=== PATIENT | female | born 1965 | race Caucasian/White ===

== ENCOUNTER 2018-03-19 16:47 | Emergency (ER) | payer OTHER, SELFPAY ==
[2018-03-19 16:53] VITALS: BP 186/108; PULSE 96; RESP 20; TEMP 37; O2SAT 97
--- NOTE | 2018-03-19 20:35 | ED.SKABFB ---
HPI - Skin/Abscess/Foreign Bdy <NESHA Martin - Last Filed: 03/19/18 22:23> General Chief complaint: Skin/Abscess/Foreign Body Stated complaint: HAS BUMP ON CHEST - NO KNOWN INJURY Time Seen by Provider: 03/19/18 19:41 Source: patient Mode of arrival: ambulatory Limitations: no limitations History of Present Illness HPI narrative: 53-year-old healthy female that is a nonsmoker for complaint of abscess to her right breast for over the last week. She states that used to be larger in size however couple days ago it opened up and drained. She denies any trauma to the area she denies any fevers or chills. She reports she has not had a history of having abscesses in the past. She states that is not that tender at this time. No other concerns or complaints at this time. Related Data Previous Rx's Medication Instructions Recorded clindamycin HCl 300 mg PO QID #28 cap 03/19/18 Allergies Allergy/AdvReac Type Severity Reaction Status Date / Time No Known Drug Allergies Allergy Verified 03/19/18 16:52 Review of Systems <NESHA Martin - Last Filed: 03/19/18 22:23> Constitutional Denies chills, Denies fever(s), Denies lethargy and Denies weakness Eyes Denies change in vision, Denies eye discharge, Denies irritation and Denies loss of vision ENT Ears, Nose, Mouth, and Throat: Denies change in voice, Denies neck pain and Denies sore throat Cardiovascular Denies chest pain, Denies irregular heart rhythm, Denies lightheadedness, Denies palpitations, Denies dyspnea, Denies dyspnea on exertion and Denies orthopnea Respiratory Denies cough, Denies dyspnea, Denies dyspnea on exertion and Denies wheezing Gastrointestinal Gastrointestinal: Denies abdominal pain, Denies change in bowel habits, Denies diarrhea, Denies nausea and Denies vomiting Genitourinary Denies hematuria, Denies flank pain, Denies urinary incontinence and Denies urinary urgency Musculoskeletal Denies neck pain Integumentary/Breasts Comments: Abscess to right breast Neurologic Denies confusion, Denies loss of vision and Denies weakness Psychiatric Denies anxiety, Denies confusion, Denies depression, Denies homicidal ideation and Denies suicidal ideation Endocrine Denies palpitations Hematologic/Lymphatic Denies easy bruising Allergic/Immunologic Denies wheezing Exam <NESHA Martin - Last Filed: 03/19/18 22:23> Initial Vital Signs Initial Vital Signs: Vital Signs Temperature 98.6 F 03/19/18 16:53 Pulse Rate 96 H 03/19/18 16:53 Respiratory Rate 20 03/19/18 16:53 Blood Pressure 186/108 H 03/19/18 16:53 Pulse Oximetry 97 03/19/18 16:53 Const General: cooperative and well developed Nutritional Appearance: well nourished Orientation: alert, awake, oriented x3 and not confused [facility] Mouth: oral mucosae normal and moist mucous membranes Eyes Conjunctivae: conjunctivae normal Sclera: sclerae normal Pupils: PERRL EOM: EOM intact bilaterally Resp Effort & Inspection: normal respiratory effort, able to speak in complete sentences, no respiratory distress and no use of accessory muscles Auscultation: clear to auscultation bilaterally, no rales, no rhonchi and no wheezes Cardio Rate: regular rate Rhythm: regular rhythm Heart Sounds: no click, no gallops, no murmurs and no rubs Pulses: normal peripheral pulses Skin Other: 2 cm raised area to superior right breast area. No surrounding erythema. Positive fluctuance and induration. No drainage from area Neuro General: alert, oriented x3, gait normal and no focal motor deficits Speech: speech normal <Femi Smith DO - Last Filed: 03/20/18 01:33> Initial Vital Signs Initial Vital Signs: Vital Signs Temperature 98.6 F 03/19/18 16:53 Pulse Rate 96 H 03/19/18 16:53 Respiratory Rate 20 03/19/18 16:53 Blood Pressure 186/108 H 03/19/18 16:53 Pulse Oximetry 97 03/19/18 16:53 Procedures <NESHA Martin - Last Filed: 03/19/18 22:23> Abscess I/D Site: other (Right breast) Side (if applicable): right Local Anesthetic: lidocaine 1% Amount of anesthesia used (mL): 2 Technique: incised with #11 blade Amount of fluid expressed (mL): 10 Irrigation: No Packing used?: none Course <NESHA Martin - Last Filed: 03/19/18 22:23> Orders Ordered: ED Orders 03/19/18 21:05 Wound Culture and Gram Stain Stat Vital Signs - 8 hr 03/19/18 21:18 Temperature 97.7 F Pulse Rate 78 Respiratory Rate 18 Blood Pressure [Left Arm] 157/94 H Pulse Oximetry 99 <Femi Smith DO - Last Filed: 03/20/18 01:33> Orders Ordered: ED Orders 03/19/18 21:05 Wound Culture and Gram Stain Stat Vital Signs - 8 hr 03/19/18 21:18 Temperature 97.7 F Pulse Rate 78 Respiratory Rate 18 Blood Pressure [Left Arm] 157/94 H Pulse Oximetry 99 MDM - Skin/Abscess/Foreign Bdy <NESHA Martin - Last Filed: 03/19/18 22:23> MDM Narrative Medical decision making narrative: Incision to abscess to right breast was completed small amount of purulent drainage was removed. Believe most of purulent drainage was already drained when abscess plenty strain a few days ago. Packing not indicated. She is placed on clindamycin. Follow up with primary care provider in next few days for re-evaluation. [id number] Tylenol Motrin as needed for any discomfort. For any worsening symptoms return emergency room. Wound culture is obtained and is pending Discharge Plan Departure Patient Disposition: Home Clinical Impression: Abscess of breast, right Discharge Date/Time: 03/19/18 21:30 Interventions: ED Discharge Assessment Last Done: 03/19/18 21:30 Instructions: Incision and Drainage of a Skin Abscess Activity Restrictions/Additional Instructions: Signs and symptoms presents as the abscess to her right breast. Abscess was incised and drained today emergency room. Wound culture is obtained and is pending. Here placed on antibiotic called clindamycin use as directed. Use [id number] Tylenol or Motrin as needed for any discomfort. For any worsening symptoms return to the emergency room. Prescriptions: New clindamycin HCl 300 mg capsule 300 mg PO QID Qty: 28 RF: 0 Referrals: [facility] [Provider Group] <Femi Smith DO - Last Filed: 03/20/18 01:33> Cosign ED Attending Cossumiature Attestation: I was immediately available in the department for consultation. Documentation has been reviewed. I agree with assessment and plan.
[2018-03-19 21:18] VITALS: BP 157/94; PULSE 78; RESP 18; TEMP 36.5; O2SAT 99
== END 2018-03-19 21:30 | disposition home or self-care (01) ==
PROVIDERS: Emergency Provider Nurse Practitioner Family
DX: N61.1 Abscess of the breast and nipple (principal)
CPT/HCPCS: 10060; 87070; 87075; 87205; 99283

== ENCOUNTER → 2018-12-30 16:12 | Outpatient (CLI) | payer OTHER, SELFPAY ==
[2018-12-30 17:42] LABS: Add Manual Diff / Slide Review NO; Basophils Absolute Auto 100 /uL (0-100); Basophils Percent Auto 0.7 % (0-2); Eosinophils Absolute Auto 300 /uL (0-450); Eosinophils Percent Auto 3.6 % (2-4); Hematocrit 41.8 % (36-46); Hemoglobin 14.2 g/dL (12.0-16.0); Lymphocytes Absolute Auto 1300 /uL (1100-4500); Lymphocytes Percent Auto 14.6 % (25-40); Mean Corpuscular HGB Conc 33.9 % (30-36); Mean Corpuscular Hemoglobin 29.4 PG (26-34); Mean Corpuscular Volume 86.6 fL (80-100); Monocytes Absolute Auto 500 /uL (0-900); Monocytes Percent Auto 5.5 % (3-14); Neutrophils Absolute Auto 6800 /uL (1500-7000); Neutrophils Percent Auto 75.6 % (50-75); Platelet Count 191 X10^3/uL (150-400); Red Blood Cell Count 4.83 X10^6/uL (4.0-5.2); Red Cell Distribution Width 12.9 % (11.6-14.8)
[2018-12-30 18:05] LABS: Alanine Aminotransferase 36 IU/L (9-52); Albumin 4.3 g/dL (3.5-5.0); Albumin Globulin Ratio 1.5 (1.0-2.8); Alkaline Phosphatase 41 U/L (38-126); Aspartate Aminotransferase 38 IU/L (14-36); BUN Creatinine Ratio 26.7 (6-22); Bilirubin Total 1.4 mg/dL (0.2-1.3); Blood Urea Nitrogen 16 mg/dL (7-17); Calcium 9.4 mg/dL (8.4-10.2); Carbon Dioxide 28 mmol/L (22-32); Chloride 102 mmol/L (98-107); Cholesterol 193 mg/dL (140-199); Estimated Glomerular Filt Rate > 60.0 mL/min (>60); Globulin 2.9 g/dL (1.7-4.1); Glucose 79 mg/dL (70-100); HDL Cholesterol 44 mg/dL (40-60); HEMOLYSIS < 15 (0-50); LDL Cholesterol Calculated 128 mg/dL (<100); Potassium 4.2 mmol/L (3.4-5.1); Sodium 140 mmol/L (137-145); Total Protein 7.2 g/dL (6.3-8.2); Triglycerides 103 mg/dL (35-150)
== END ==
PROVIDERS: PCP Family Medicine; Visit Provider Family Medicine
DX: Z00.00 Encounter for general adult medical examination without abnormal findings (principal); D64.9 Anemia, unspecified
CPT/HCPCS: 36415; 80053; 80061; 84443; 85025

== ENCOUNTER 2019-04-26 13:31 | Day surgery (SDC) | payer OTHER, SELFPAY ==
--- NOTE | 2019-04-26 | PATH_ITS ---
[facility] Accession Number: [id number] . 01 Material submitted: . PART A: cecum - CECAL POLYP PART B: colon - ASCENDING COLON POLYP . 02 Diagnosis: A. Cecum, Polyp: Inflammatory polyp. . B. Ascending Colon, Polyp: Tubular adenoma. [facility] 04/27/2019 1427 Local . 02 Electronically signed: . Brant Schmidt MD, PhD, Pathologist NPI- [id number] . 01 Gross description: . Part A: CECAL POLYP: Received in formalin are 3 fragment(s) of berry, soft tissue measuring 0.1 x 0.1 x 0.1 cm to 0.3 x 0.3 x 0.3 cm submitted entirely in 1 cassette(s) Part B: ASCENDING COLON POLYP: Received in formalin is 1 fragment(s) of berry, soft tissue measuring 0.3 x 0.3 x 0.3 cm submitted entirely in 1 cassette(s) /[facility] 04/27/2019 0149 Local . 02 Pathologist provided ICD-10: D12.2, K51.40 . 02 CPT . 446474, 822467 Performed at: 01 [facility] [address] [facility], [place], [place] [id number] MD Michael Chua MD Phone: [phone] Performed at: 02 [facility] [address] [place], [place] [id number] MD Eugenia Kuhn MD Phone: [phone]
--- NOTE | 2019-04-26 08:14 | P.HP_ITS ---
History of Present Illness History of Present Illness Date Patient Seen: 04/26/19 Time Patient Seen: 14:42 Chief complaint: [id number] SCREENING COLONOSCOPY Narrative: 54 year old female comes in today for consideration of a screening colonoscopy. There have been no lower GI symptoms suggesting disease such as change in bowel habits, bleeding, abdominal pain or anemia. There's been no family history of colon cancer or colon polyps. Overall health issues have been stable, including no major cardiac events for at least 6 weeks. PCP: Dr. 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 Patient History Family & Social History Tobacco & Substance use: Smoking Status Never smoker Substance Use Type does not use Meds Home Medications and Allergies Home Medications Medication Instructions Recorded Confirmed Type No Known Home Medications 04/26/19 04/26/19 History Allergies Allergy/AdvReac Type Severity Reaction Status Date / Time No Known Drug Allergies Allergy Verified 04/26/19 13:51 Review of Systems Review of Systems ROS: Yes All systems reviewed with the patient and are negative except as otherwise documented Exam Narrative Exam Narrative: GENERAL: Alert and oriented, appearing stated age and in no acute distress. HEENT: Head normocephalic/atraumatic. LUNGS: Clear to ausculation bilaterally, no wheezes, rhonchi or rales. CV: Normal S1 and S2 with regular rate and rhythm, no audible murmurs, rubs or gallops. ABDOMEN: Soft, non-tender, non-distended, no organomegaly. Positive bowel sounds. EXTREMITIES: No clubbing, cyanosis, or edema. NEURO: Cranial nerves II through XII grossly intact, no focal deficits. PSYCH: Alert and oriented x 3. SKIN: No concerning lesions. Assessment & Plan Assessment & Plan narrative: 1. Screening for colon cancer Plan for colonoscopy. The nature and character of the procedure as well as anticipated results were discussed. The possibility of not completing the procedure was also discussed. Possible complications including aspiration pneumonia, bleeding, perforation and reaction to medications either for sedation or preparation and missed lesions were discussed. Questions were answered and proceeding to the colonoscopy was elected. Informed consent signed. I sincerely appreciate the referral allowing me to participate in this patient's care. Please contact me with any questions or concerns.
--- NOTE | 2019-04-26 08:14 | PM.OP.ENDO ---
Operative Date/Time/Diagnoses Date of procedure: 04/26/19 Time of procedure: 14:50 Pre-op diagnosis: 1. Screening for colon cancer Post-op diagnosis: other ( 1. Cecal polyp x1, 3 mm, removed with cold biopsy forceps, 2. Ascending polyp x1, 3 mm, cold biopsy forceps, 3. Diverticulosis, pancolonic) Procedure & Clinicians Study performed: Colonoscopy Same procedure as scheduled: Yes Indications: 1. Screening for colon cancer Surgeon: Aura Orr Procedure Notes SCOAP/Timeout: 14:50 Procedure in detail: ENDOSCOPIST: Aura Orr MD Sedation RN: Andry Cota RN Sedation start time: 2:50 p.m. Sedation end time: 3:28 p.m. PROCEDURE: Colonoscopy with cold biopsy INDICATIONS: 1. Screening for colon cancer MEDICATION: Levsin 0.125 mg sublingual, incremental doses of Versed and fentanyl until appropriate level sedation achieved. ASA CLASS: 2 CECAL WITHDRAWAL TIME: 18 minutes COMPLICATIONS: None. EXTENT OF PROCEDURE: Cecum. QUALITY OF PREP: Good with portions of liquid stool. PROCEDURE: Prior to insertion of the colonoscope, a digital rectal examination was accomplished with circumferential palpation of the distal rectal mucosa without significant findings being noted. The high-definition colonoscope was passed into the rectum in the usual fashion and advanced over to the cecum without difficulty. The ileocecal valve, appendiceal stoma, and medial wall all could be inspected and a 3 mm polyp was seen and removed with cold biopsy forceps, excellent hemostasis. ASCENDING COLON: As the colonoscope was withdrawn, care was taken to expose and inspect the haustral folds and a 3 mm polyp was seen and removed with cold biopsy forceps. There was also minor diverticulosis. HEPATIC FLEXURE: Minor diverticulosis, otherwise, normal, no polyps or other abnormalities. TRANSVERSE COLON: Minor diverticulosis, otherwise, normal, no polyps or other abnormalities. DESCENDING COLON: Minor diverticulosis, otherwise, normal, no polyps or other abnormalities. SIGMOID COLON: Minor diverticulosis, otherwise, normal, no polyps or other abnormalities. RECTUM: Normal. J maneuver was produced. There was no significant perianal disease. The J maneuver was broken. The remainder of the rectum was inspected and there was no external hemorrhoid disease. The scope was withdrawn. IMPRESSION: 1. Cecal polyp x1, 3 mm, removed with cold biopsy forceps 2. Ascending polyp x1, 3 mm, removed with cold biopsy forceps 3. Diverticulosis, summers colonic PLAN: 1. Follow-up in clinic status post pathology results. The possibility of a missed lesion including a malignancy has been discussed with the patient previously. Potential alarm symptoms have been discussed and should be reported immediately. Scope withdrawal time: 18 minutes Sedation minutes: 38 Findings: diverticulosis and polyp Specimen(s): none sent Complications: none Impression: As above. Post-procedure Recommendations: Will call with biopsy results Follow up: weeks (2) Disposition: PACU
[2019-04-26] MEDS: HYOSCYAMINE 0.125 MG TABLET PO (13:51)
[2019-04-26 14:06] VITALS: BP 149/97; PULSE 103; RESP 20; TEMP 36.4; BMI 32.1
[2019-04-26] MEDS: SODIUM CHLORIDE 0.9% 1,000 ML 200 ML IV (14:06)
[2019-04-26] MEDS: MIDAZOLAM 5 MG/ML VIAL 1 MG IV (14:28)
[2019-04-26] MEDS: fentaNYL 250 MCG/5 ML INJ IV (14:29)
[2019-04-26 15:34] VITALS: BP 133/83; PULSE 77; RESP 16; TEMP 36.1; O2SAT 96
[2019-04-26 15:54] VITALS: BP 116/79; PULSE 73; TEMP 36.5; O2SAT 96
--- NOTE | 2019-04-26 16:12 | SUR.PHASEII ---
1534 patient arrived from [facility] awake, drowsy. VS stable. Denied pain, abd soft.
== END 2019-04-26 16:04 | disposition home or self-care (01) ==
PROVIDERS: PCP Family Medicine; Referring Provider Student in an Organized Health Care Education/Training Program; Visit Provider Student in an Organized Health Care Education/Training Program
PROC: 0DJD8ZZ Inspection of Lower Intestinal Tract, Via Natural or Artificial Opening Endoscopic (ICD-10-PCS; CPT 45378; principal; 2019-04-26 15:00)
DX: Z12.11 Encounter for screening for malignant neoplasm of colon (principal); K57.30 Diverticulosis of large intestine without perforation or abscess without bleeding; D12.2 Benign neoplasm of ascending colon; K51.40 Inflammatory polyps of colon without complications
CPT/HCPCS: 45380; J2250; J3010

== ENCOUNTER 2020-06-26 13:40 | Observation (INO) | payer OTHER, SELFPAY ==
[2020-06-26] VITALS (17 sets, daily range): BP systolic 132–166; BP diastolic 63–87; PULSE 73–106; RESP 13–98; TEMP 36.4–37.1; O2SAT 13–99; BMI 27.1
--- NOTE | 2020-06-26 | PATH_ITS ---
[facility] Accession Number: [id number] . 01 Material submitted: . appendix - APPENDIX . 01 Clinical history: . LOWER RIGHT ABDOMINAL PAIN, HURTS TO SIT DOWN . 02 Diagnosis: Appendix, Appendectomy: Acute suppurative appendicitis with microscopic perforation and serositis. Negative for dysplasia and malignancy. [facility] 07/04/2020 1421 Local . 02 Electronically signed: . Eugenia Kuhn MD, Pathologist NPI- [id number] . 01 Gross description: . Received in formalin, labeled with the patient's name and appendix, is a 6.0 cm length by 0.8-1.5 cm appendix, staple line at resection margin, margin inked blue. The appendix is diffusely covered with yellow-berry exudate. Sectioning reveals diffusely hemorrhagic mucosa, lumen filled with exudate, no fecaliths present. Tip and entire appendix intact. Life Skills Worker sections submitted. . SUMMARY OF SECTIONS: A1. Appendix resection margin, cross-section, and bisected tip, four pieces. ([id number]) /KAREN 07/01/20201999 Local . 02 Pathologist provided ICD-10: K35.20 . 02 CPT . 470666 Performed at: 01 [facility] [address] [facility], [place], [place] [id number] MD Michael Chua MD Phone: [phone] Performed at: 02 [facility] [address] [place], [place] [id number] MD Eugenia Kuhn MD Phone: [phone]
[2020-06-26] MEDS: SODIUM CHLORIDE 0.9% 1,000 ML 1000 ML IV (14:27)
[2020-06-26 14:28] LABS: Add Manual Diff / Slide Review NO; Basophils Absolute Auto 100 /uL (0-100); Basophils Percent Auto 0.5 % (0-2); Eosinophils Absolute Auto 0 /uL (0-450); Eosinophils Percent Auto 0.3 % (2-4); Hematocrit 43.2 % (36-46); Hemoglobin 14.7 g/dL (12.0-16.0); Lymphocytes Absolute Auto 1100 /uL (1100-4500); Lymphocytes Percent Auto 7.3 % (25-40); Mean Corpuscular Hemoglobin 29.1 PG (26-34); Mean Corpuscular Volume 85.5 fL (80-100); Monocytes Absolute Auto 800 /uL (0-900); Monocytes Percent Auto 5.5 % (3-14); Neutrophils Absolute Auto 13000 /uL (1500-7000); Neutrophils Percent Auto 86.4 % (50-75); Platelet Count 217 X10^3/uL (150-400); Red Blood Cell Count 5.05 X10^6/uL (4.0-5.2); Red Cell Distribution Width 12.8 % (11.6-14.8)
[2020-06-26 14:35] LABS: INR 1.3 (0.9-1.3); Prothrombin Time 14.3 SECONDS (10.1-12.7)
[2020-06-26 14:38] LABS: PTT Partial Thromboplastin Tim 31 SECONDS (26.4-36.2)
[2020-06-26 14:40] LABS: Alanine Aminotransferase 28 IU/L (<35); Albumin 4.7 g/dL (3.5-5.0); Albumin Globulin Ratio 1.3 (1.0-2.8); Alkaline Phosphatase 46 U/L (38-126); Aspartate Aminotransferase 32 IU/L (14-36); BUN Creatinine Ratio 16.4 (6-22); Blood Urea Nitrogen 18 mg/dL (7-17); Calcium 10.4 mg/dL (8.4-10.2); Carbon Dioxide 26 mmol/L (22-32); Chloride 101 mmol/L (98-107); Estimated Glomerular Filt Rate 51.8 mL/min (>60); Globulin 3.6 g/dL (1.7-4.1); Glucose 115 mg/dL (70-100); HEMOLYSIS < 15 (0-50); Lipase 141 U/L (23-300); Potassium 3.8 mmol/L (3.4-5.1); Sodium 138 mmol/L (137-145); Total Protein 8.3 g/dL (6.3-8.2)
--- NOTE | 2020-06-26 14:53 | DI.CT.S_ITS ---
PROCEDURE: CT ABDOMEN PELVIS W CON INDICATIONS: RLQ pain, ? appy TECHNIQUE: After the administration of intravenous contrast, 5 mm thick sections acquired from the diaphragm to the symphysis. 5 mm coronal and sagittal reformats were acquired. For radiation dose reduction, the following was used: automated exposure control, adjustment of mA and/or kV according to patient size. COMPARISON: None. FINDINGS: Lower thorax: The lung bases are clear. Heart size normal. No hiatal hernia. Liver: Normal in size and attenuation. No contour deformity present. Biliary system: Cholecystectomy. Common bile duct is prominent at 1 cm. No significant intrahepatic biliary ductal dilatation. No intra or extrahepatic bile duct dilatation. Pancreas: Unremarkable without mass or inflammation evident. Spleen: Normal in size and density. Adrenals: Normal morphology and density. Reproductive system: Exophytic subserosal uterine fibroid measures 3.3 cm and is calcified. Urinary system: Normal renal size and attenuation. No renal calculi, hydronephrosis, or solid mass present. Urinary bladder unremarkable. Gastrointestinal system: The bowel appears unremarkable with no evidence of bowel obstruction or inflammation. The stomach appears unremarkable. Several diverticula arise from the colon without evidence of diverticulitis. Appendix: The appendix is dilated up to 1.4 cm at the base, there is a 2. Appendiceal inflammation consistent with acute appendicitis. No evidence of abscess, appendicular with or free fluid. Peritoneal spaces: No intra- or retroperitoneal adenopathy. No free air. No free fluid. Vasculature: The IVC, aorta and iliac vasculature are unremarkable. Musculoskeletal: Normal bone mineralization. No acute fractures. Abdominal wall intact without evidence of ventral or inguinal hernias. multilevel degenerative disc disease and arthropathy in the lower lumbar spine noted. IMPRESSION: 1. Acute appendicitis. The appendix is dilated to 1.4 cm, and there is periappendiceal inflammation without evidence of free fluid or abscess. No appendicolith. 2. Cholecystectomy and mild diverticulosis without diverticulitis. Critical results were discussed with Dr. Ricardo on 06/26/2020 at 3:25 p.m. Dictated by: Jeovany Edwards M.D. on 06/26/2020 at 15:11 Approved by: Jeovany Edwards M.D. on 06/26/2020 at 15:26
[2020-06-26] MEDS: ONDANSETRON 4 MG/2 ML INJ IV ×2 (15:24→19:36)
[2020-06-26] MEDS: HYDROMORPHONE 0.5 MG INJ IV (15:25)
--- NOTE | 2020-06-26 15:49 | ED_ITS ---
HPI - Abdominal Pain General Chief Complaint: Abdominal Pain Stated Complaint: lower right abdominal pain, hurts to sit down Time Seen by Provider: 06/26/20 14:00 Source: patient Mode of arrival: Ambulatory History of Present Illness HPI narrative: Otherwise healthy 55-year-old woman presents with right lower quadrant pain that began at 11:00 a.m. yesterday. She had initially attributed this to states that was a couple of days old from the refrigerator. She had a couple of episodes of diarrhea but no vomiting or nausea. She denies fevers or chills. She has had no chest pain, palpitations, orthopnea, dyspnea, rashes, vaginal discharge. Related Data Home Medications Medication Instructions Recorded Confirmed No Known Home Medications 04/26/19 04/26/19 Allergies Allergy/AdvReac Type Severity Reaction Status Date / Time No Known Drug Allergies Allergy Verified 06/26/20 14:53 Review of Systems Review of Systems Narrative: Remainder of complete review of systems is otherwise unremarkable except for that included in the HPI. Patient History Medical History Appendicitis Obesity Surgical History History of cholecystectomy Social History household members: spouse Smoking Status: Never smoker Smoking Status: Never smoker alcohol intake frequency: holidays/special occasions only Substance Use Type: does not use Exam Narrative Exam Narrative: General: Healthy appearing, in no acute distress. Able to give a complete and coherent history. Well-nourished well-developed HEENT: Moist mucous membranes, normal sclera with reactive pupils, Respiratory: Lungs are clear to auscultation, no wheezing no rales no rhonchi. Full and symmetrical air movement Cardiac: Regular rate and rhythm no murmurs no bruits Abdomen: Soft, tender in the right lower quadrant with developing peritoneal si gns, mildly tender in the right upper quadrant, no flank pain Skin: Warm and dry, no rashes Neurologic: Grossly neurologically intact with no obvious asymmetries or abnormalities Extremities: No trauma, well perfused Psych: Cooperative, appropriate insight and affect Initial Vital Signs Initial Vital Signs: Vital Signs Temperature 98.7 F 06/26/20 14:04 Pulse Rate 103 H 06/26/20 14:04 Respiratory Rate 22 06/26/20 14:04 Blood Pressure 166/63 H 06/26/20 14:04 Pulse Oximetry 98 06/26/20 14:04 Course Orders Ordered: ED Orders 06/26/20 13:50 Complete Blood Count AUTO DIFF Stat Comprehensive Metabolic Panel Stat Lipase Stat Partial Thromboplastin Time Stat Prothrombin Time INR Stat 06/26/20 13:56 EKG-12 Lead Stat 06/26/20 14:53 CT abdomen pelvis w con Stat 06/26/20 15:11 COVID19 - ADMIT ([facility] swab/PCR) Stat Hydromorphone HCl (Hydromorphone 0.5 Mg Inj) 0.5 mg IV Q15MIN PRN PRN Reason: Pain, Last Admin: 06/26/20 15:25 Dose: 0.5 mg Documented by: CHARLY Discontinued Medications Sodium Chloride (Normal Saline 0.9%) 1,000 mls @ 1,000 mls/hr IV BOLUS ONE Stop: 06/26/20 15:19 Last Admin: 06/26/20 14:27 Dose: 1,000 mls/hr Documented by: CHARLY Piperacillin Sod/Tazobactam (Sod 4.5 gm/ Sodium Chloride) 100 mls @ 200 mls/hr IV NOW ONE Stop: 06/26/20 16:57 Ondansetron HCl (Ondansetron 4 Mg/2 Ml Inj) 4 mg IV NOW ONE Stop: 06/26/20 15:20 Last Admin: 06/26/20 15:24 Dose: 4 mg Documented by: CHARLY Vital Signs Vital signs: Vital Signs - 8 hr 06/26/20 14:04 06/26/20 14:30 06/26/20 15:01 Temperature 98.7 F Pulse Rate 103 H 98 H 92 H Respiratory Rate 22 Blood Pressure 166/63 H Pulse Oximetry 98 99 94 06/26/20 15:30 Temperature Pulse Rate 91 H Respiratory Rate Blood Pressure 150/77 H Pulse Oximetry 99 MDM - Abdominal Pain Medical Records Attestation: I reviewed the patient's medical records. Lab Data Attestation: I reviewed the patient's lab results. Result diagrams: 06/26/20 13:50 06/26/20 13:50 Labs: Lab Results 04/19/21 04/19/21 04/19/21 Range/Units 13:50 13:50 13:50 WBC 15.0 H (4.5-11.0) X10^3/uL RBC 5.05 (4.0-5.2) X10^6/uL Hgb 14.7 (12.0-16.0) g/dL Hct 43.2 (36-46) % MCV 85.5 (80-100) fL MCH 29.1 (26-34) PG MCHC 34.0 (30-36) % RDW 12.8 (11.6-14.8) % Plt Count 217 (150-400) X10^3/uL Neut % (Auto) 86.4 H (50-75) % Lymph % (Auto) 7.3 L (25-40) % [place] % (Auto) 5.5 (3-14) % Eos % (Auto) 0.3 L (2-4) % Baso % (Auto) 0.5 (0-2) % Neut # (Auto) 60579 H (6391-8526) /uL Lymph # (Auto) 1100 (4753-7175) /uL [place] # (Auto) 800 (0-900) /uL Eos # (Auto) 0 (0-450) /uL Baso # (Auto) 100 (0-100) /uL PT 14.3 H (10.1-12.7) SECONDS INR 1.3 (0.9-1.3) APTT 31 (26.4-36.2) SECONDS Sodium 138 (137-145) mmol/L Potassium 3.8 (3.4-5.1) mmol/L Chloride 101 (98-107) mmol/L Carbon Dioxide 26 (22-32) mmol/L BUN 18 H (7-17) mg/dL Creatinine 1.10 H (0.52-1.04) mg/dL Estimated GFR 51.8 L (>60) mL/min BUN/Creatinine Ratio 16.4 (6-22) Glucose 115 H (70-100) mg/dL Calcium 10.4 H (8.4-10.2) mg/dL Total Bilirubin 3.0 H (0.2-1.3) mg/dL AST 32 (14-36) IU/L ALT 28 (<35) IU/L Alkaline Phosphatase 46 (38-126) U/L Total Protein 8.3 H (6.3-8.2) g/dL Albumin 4.7 (3.5-5.0) g/dL Globulin 3.6 (1.7-4.1) g/dL Albumin/Globulin Ratio 1.3 (1.0-2.8) Lipase 141 (23-300) U/L SARS-CoV-2 (PCR) (Negative) 06/26/20 Range/Units 15:11 WBC (4.5-11.0) X10^3/uL RBC (4.0-5.2) X10^6/uL Hgb (12.0-16.0) g/dL Hct (36-46) % MCV (80-100) fL MCH (26-34) PG MCHC (30-36) % RDW (11.6-14.8) % Plt Count (150-400) X10^3/uL Neut % (Auto) (50-75) % Lymph % (Auto) (25-40) % [place] % (Auto) (3-14) % Eos % (Auto) (2-4) % Baso % (Auto) (0-2) % Neut # (Auto) (1367-0821) /uL Lymph # (Auto) (6118-3296) /uL [place] # (Auto) (0-900) /uL Eos # (Auto) (0-450) /uL Baso # (Auto) (0-100) /uL PT (10.1-12.7) SECONDS INR (0.9-1.3) APTT (26.4-36.2) SECONDS Sodium (137-145) mmol/L Potassium (3.4-5.1) mmol/L Chloride (98-107) mmol/L Carbon Dioxide (22-32) mmol/L BUN (7-17) mg/dL Creatinine (0.52-1.04) mg/dL Estimated GFR (>60) mL/min BUN/Creatinine Ratio (6-22) Glucose (70-100) mg/dL Calcium (8.4-10.2) mg/dL Total Bilirubin (0.2-1.3) mg/dL AST (14-36) IU/L ALT (<35) IU/L Alkaline Phosphatase (38-126) U/L Total Protein (6.3-8.2) g/dL Albumin (3.5-5.0) g/dL Globulin (1.7-4.1) g/dL Albumin/Globulin Ratio (1.0-2.8) Lipase (23-300) U/L SARS-CoV-2 (PCR) Negative (Negative) Point of care testing: Point of Care Testing Test Results Negative Urine Dip Bedside Urine Glucose Negative Bedside Urine Bilirubin - Negative Bedside Urine Ketone - Negative Urine Specific [facility] 1.025 Bedside Urine Occult Blood +/- Bedside Urine pH 6 Bedside Urine Protein ++ 100 Bedside Urine Urobilinogen - Negative Bedside Urine Nitrite - Negative Bedside Urine Leukocytes - Negative Esterase Imaging Data CT scan - abdomen/pelvis: Radiologist's Impression: FINDINGS: Lower thorax: The lung bases are clear. Heart size normal. No hiatal hernia. Liver: Normal in size and attenuation. No contour deformity present. Biliary system: Cholecystectomy. Common bile duct is prominent at 1 cm. No significant intrahepatic biliary ductal dilatation. No intra or extrahepatic bile duct dilatation. Pancreas: Unremarkable without mass or inflammation evident. Spleen: Normal in size and density. Adrenals: Normal morphology and density. Reproductive system: Exophytic subserosal uterine fibroid measures 3.3 cm and is calcified. Urinary system: Normal renal size and attenuation. No renal calculi, hydronephrosis, or solid mass present. Urinary bladder unremarkable. Gastrointestinal system: The bowel appears unremarkable with no evidence of bowel obstruction or inflammation. The stomach appears unremarkable. Several diverticula arise from the colon without evidence of diverticulitis. Appendix: The appendix is dilated up to 1.4 cm at the base, there is a 2. Appendiceal inflammation consistent with acute appendicitis. No evidence of abscess, appendicular with or free fluid. Peritoneal spaces: No intra- or retroperitoneal adenopathy. No free air. No free fluid. Vasculature: The IVC, aorta and iliac vasculature are unremarkable. Musculoskeletal: Normal bone mineralization. No acute fractures. Abdominal wall intact without evidence of ventral or inguinal hernias. multilevel degenerative disc disease and arthropathy in the lower lumbar spine noted. IMPRESSION: 1. Acute appendicitis. The appendix is dilated to 1.4 cm, and there is periappendiceal inflammation without evidence of free fluid or abscess. No appendicolith. 2. Cholecystectomy and mild diverticulosis without diverticulitis. Critical results were discussed with Dr. Ricardo on 06/26/2020 at 3:25 p.m. Dictated by: Jeovany Edwards M.D. on 06/26/2020 at 15:11 ECG Data Attestation: I personally reviewed and interpreted this ECG as follows: Interpretation: Normal sinus rhythm at a rate of 99 Normal axis, normal intervals No acute ischemic changes MDM Narrative Medical decision making narrative: 55-year-old woman with increasing right lower quadrant abdominal pain since 11:00 a.m. yesterday. Physical exam, CT scan and blood work are consistent with acute appendicitis. Last meal was yesterday. 350pm Dr. Dangelo is paged 450pm Pt will go to the OR. Admit to Dr Dangelo. requests zosyn be started. Discharge Plan Departure Patient Disposition: Admitted as Observation Clinical Impression: Appendicitis Qualifiers: Appendicitis type: acute appendicitis Acute appendicitis type: with localized peritonitis Appendicitis gangrene presence: without gangrene Appendicitis perforation presence: without perforation Appendicitis abscess presence: unspecified whether abscess present Qualified Code(s): K35.30 - Acute appendicitis with localized peritonitis, without perforation or gangrene Admit Date/Time: 06/26/20 17:35 Admit Provider: Sean Dangelo
[2020-06-26 16:04] LABS: COVID19 - ADMIT (NP swab/PCR) Negative (Negative)
--- NOTE | 2020-06-26 17:54 | PM.HP.1 ---
History of Present Illness History of Present Illness Date Patient Seen: 06/26/20 Time Patient Seen: 17:54 Chief complaint: lower right abdominal pain, hurts to sit down Narrative: 55-year-old woman evaluated in the emergency room for acute appendicitis. She developed abdominal pain yesterday today became focused in the right lower quadrant. She presented to the emergency room underwent a CT of the abdomen pelvis which demonstrates a dilated appendix without abscess. After Admission afebrile, WBC 15, HCT 43 creatinine 1.1. She received IV fluid and Zosyn in the emergency room Patient History Medical History Appendicitis Obesity Surgical History History of cholecystectomy Family & Social History Social History: household members spouse Tobacco & Substance use: Smoking Status Never smoker alcohol intake frequency holiday/special occasion Substance Use Type does not use Meds Home Medications and Allergies Home Medications Medication Instructions Recorded Confirmed Type No Known Home Medications 04/26/19 04/26/19 History Allergies Allergy/AdvReac Type Severity Reaction Status Date / Time No Known Drug Allergies Allergy Verified 06/26/20 14:53 Review of Systems Review of Systems ROS: Yes All systems reviewed with the patient and are negative except as otherwise documented Exam Vital Signs (past 8 hours): - 06/26/20 14:04 06/26/20 14:30 06/26/20 15:01 Temperature 98.7 F Pulse Rate 103 H 98 H 92 H Respiratory Rate 22 Blood Pressure 166/63 H Pulse Oximetry 98 99 94 06/26/20 15:30 Temperature Pulse Rate 91 H Respiratory Rate Blood Pressure 150/77 H Pulse Oximetry 99 Oxygen Delivery Method Room Air Narrative Exam Narrative: GENERAL-well developed adult woman, no acute distress HEENT-no scleral icterus, hearing intact NECK-no JVD, trachea midline CVS- regular rate, no peripheral edema RESP-unlabored respiratory effort, no audible wheezing GI-focal peritonitis right lower quadrant MSK-no cyanosis or clubbing, extremities without deformity SKIN-warm, dry NEURO-alert and oriented, no focal deficits PYSCH-Appropriate mood and affect Objective Labs Result Diagrams: 06/26/20 13:50 06/26/20 13:50 Labs: Laboratory Results - last 24 hr 06/26/20 06/26/20 06/26/20 13:50 13:50 13:50 WBC 15.0 H RBC 5.05 Hgb 14.7 Hct 43.2 MCV 85.5 MCH 29.1 MCHC 34.0 RDW 12.8 Plt Count 217 Neut % (Auto) 86.4 H Lymph % (Auto) 7.3 L [place] % (Auto) 5.5 Eos % (Auto) 0.3 L Baso % (Auto) 0.5 Neut # (Auto) 66728 H Lymph # (Auto) 1100 [place] # (Auto) 800 Eos # (Auto) 0 Baso # (Auto) 100 PT 14.3 H INR 1.3 APTT 31 Sodium 138 Potassium 3.8 Chloride 101 Carbon Dioxide 26 BUN 18 H Creatinine 1.10 H Estimated GFR 51.8 L BUN/Creatinine Ratio 16.4 Glucose 115 H Calcium 10.4 H Total Bilirubin 3.0 H AST 32 ALT 28 Alkaline Phosphatase 46 Total Protein 8.3 H Albumin 4.7 Globulin 3.6 Albumin/Globulin Ratio 1.3 Lipase 141 SARS-CoV-2 (PCR) 06/26/20 15:11 WBC RBC Hgb Hct MCV MCH MCHC RDW Plt Count Neut % (Auto) Lymph % (Auto) [place] % (Auto) Eos % (Auto) Baso % (Auto) Neut # (Auto) Lymph # (Auto) [place] # (Auto) Eos # (Auto) Baso # (Auto) PT INR APTT Sodium Potassium Chloride Carbon Dioxide BUN Creatinine Estimated GFR BUN/Creatinine Ratio Glucose Calcium Total Bilirubin AST ALT Alkaline Phosphatase Total Protein Albumin Globulin Albumin/Globulin Ratio Lipase SARS-CoV-2 (PCR) Negative Assessment & Plan Assessment and plan (1) Appendicitis: Problem details: 06/26/2020 Qualifiers: Acute appendicitis type: with localized peritonitis Appendicitis abscess presence: unspecified whether abscess present Appendicitis gangrene presence: without gangrene Appendicitis perforation presence: without perforation Appendicitis type: acute appendicitis Qualified Code(s): K35.30 - Acute appendicitis with localized peritonitis, without perforation or gangrene Status: Acute Assessment & Plan narrative: 55-year-old healthy woman with acute appendicitis. -Laparoscopic appendectomy I reviewed her laboratory studies and imaging. CT demonstrates acute appendicitis no abscess. We discussed surgical and nonoperative management. Operative risks including bleeding, infection, damage to surrounding structures, conversion to open were discussed. Her questions have been answered and will proceed with a laparoscopic appendectomy.
[2020-06-26] MEDS: PIPERACILLIN/TAZO 4.5 GM in SODIUM CHLORIDE 0.9% 100 ML 200 ML IV (17:56)
[2020-06-26] MEDS: BUPIVACAINE 0.25% (PF) VIAL 30 ML INJ (18:43)
[2020-06-26] MEDS: LACTATED RINGERS 1,000 ML 42 ML IV ×2 (18:50→19:03)
--- NOTE | 2020-06-26 19:52 | P.OP_ITS ---
Operative Date/Time/Diagnoses Date of procedure: 06/26/20 Time of procedure: 19:53 Pre-op diagnosis: acute appendicitis Post-op diagnosis: other (Perforated appendicitis) Procedure & Clinicians Procedure: Laparoscopic appendectomy Same procedure as scheduled: Yes Indications: Acute appendicitis without abscess Surgeon: Sean Dangelo Click Yes if Unassisted: Yes Anesthesia Type: General Operative Notes Findings: Necrotic appendix with murky fluid in the abdomen Specimen(s): other (Appendix) Procedure in detail: Patient was brought to the operating room placed supine on the table. Bilateral lower extremity compression devices were applied. Anesthesia was induced and they intubated with an endotracheal tube. They rec eived 3.375 g of Zosyn prior to skin incision. The left arm was tucked and appropriately padded. They were prepped and draped in sterile fashion. Time-out was performed. An infraumbilical incision was made the umbilical stalk was grasped and elevated and incision was made and the abdomen was entered atraumatically. A 12 mm balloon trocar was then placed through the incision and pneumoperitoneum of 14 mm Hg was established. The scope was then inserted and the abdomen inspected, there was no evidence of injury upon entry. Two 5 mm ports were placed under direct visualization, one in the left lower quadrant and second in the lower midline. A thorough laparoscopic evaluation was performed inspecting all four quadrants. There was murky fluid in the pelvis. The patient was then tilted right side up. The small bowel was then swept to the upper aspect of the abdomen. The tenie were followed to the base of the cecum where the appendix was identified. The appendix was was mobilized from its lateral attachments. It was acutely necrotic, however the base was viable. The appendix was grasped and a window within the mesentery was made at the base of the appendix using the [place] dissector with care to avoid injuring the cecum. The mesoappendix was then divided using the endo-stapler with a staple length of 2.5 mm-white load. The mesenteric staple line was inspected for hemostasis. The appendix was then amputated flush at the cecum using the endo-stapler blue load. The specimen was retrieved using a endoscopic retrieval bad through the 10 mm infra-umbilical port. The right paracolic gutter and the pouch of [place] were irrigated The 5 mm ports were then removed under direct visualization. The umbilical fascial incision was closed with 0 Vicryl in a figure-eight fashion. The skin wounds were irrigated and closed with 4-0 Monocryl followed by the application of Dermabond. Sponge instrument count at the end of the operation was correct. The patient tolerated procedure well was extubated and transferred to the postoperative care unit in stable condition. Complications: none Post-operative Condition: stable Disposition: observation
--- NOTE | 2020-06-26 19:56 | SUR.PHASEI ---
report to Isaac. Pt transported to room 217 in stable condition.
[2020-06-26] MEDS: PIPERACILLIN-TAZO 3.375 GM/50 ML FROZ.PIGGY IV (21:10)
[2020-06-26] MEDS: IBUPROFEN 600 MG TABLET PO (23:37)
[2020-06-26] MEDS: ACETAMINOPHEN 325 MG TABLET 650 MG PO (23:38)
[2020-06-27] VITALS (8 sets, daily range): BP systolic 142–153; BP diastolic 77–84; PULSE 80–84; RESP 15–18; TEMP 36.2–36.8; O2SAT 95–98
[2020-06-27] MEDS: PIPERACILLIN-TAZO 3.375 GM/50 ML FROZ.PIGGY IV ×2 (02:09→08:21)
--- NOTE | 2020-06-27 02:28 | RT ---
Paged by RN to come to bedside for eval and treat of pt's desat to 73% on RA while sleeping, but increases when awake. Per pt, pt has hx of KYLE on CPAP and hasn't used CPAP recently. Pt has no pulmonary hx. BS clear t/o, SpO2 96% on RA. Pt is +STOP/BANG. Placed pt on hospital nocturnal BiPAP machine at 0205. Will continue to monitor pt.
[2020-06-27] MEDS: IBUPROFEN 600 MG TABLET PO ×2 (05:15→12:06)
[2020-06-27] MEDS: ACETAMINOPHEN 325 MG TABLET 650 MG PO ×2 (05:15→12:05)
[2020-06-27] MEDS: ENOXAPARIN 40 MG/0.4 ML SYRINGE SUBCUT (08:18)
[2020-06-27] MEDS: OXYCODONE IR 5 MG TABLET PO ×2 (10:06→15:49)
[2020-06-27] MEDS: SODIUM CHLORIDE 0.9% FLUSH 10 ML IV (10:08)
--- NOTE | 2020-06-27 14:36 | PC.NURSE ---
Went over dc instructions and medications with, questions answered. Patient waiting for to discharge.
--- NOTE | 2020-06-27 16:08 | PC.NURSE ---
Evening Shift Note- Patient discharged home. Patient left via wheelchair with and all personal belongings to private car at 1608.
--- NOTE | 2020-06-27 16:46 | CM.DANOTE ---
DCP ASSESSMENT: Patient is a pleasant 55 year-old admitted for acute appendicitis / appendectomy. PCP Dr. Rankin. Primary payer is [employer]. SUPERVISOR [employer] DEPARTMENT Student met with patient at [facility]. Provided education on role of social work in D/C planning. 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 She lives with Gera who will provide transportation home. Patient anticipates home when medically stable. will provide transportation. PLAN: Anticipate D/C home when medically stable. CM Team to continue to follow. SENTHIL Abad MSW Student Discharge Planning/Care Management CM Discharge Assessment Start: 06/27/20 11:44 Freq: Status: Discharge Protocol: Document 06/27/20 11:44 AL (Rec: 06/27/20 11:46 AL [id number]) Discharge Planning Assessment Assigned Slasher Tender Helper SENTHIL Dean Student Contact Information Gera Hewitt, [phone] Advance Directives? No History Provided By Patient,Medical Record Has Patient been admitted in last 30 No days? Prior Living Arrangements House Household Members spouse Type of transporation used prior to Drives own vehicle admit Independent with ADL's Yes Is patient alert and oriented? Yes Caregiver for Another No Barriers to Discharge No Discharge Plan Home Transportation Arrangement Patient's Gera will provide transportation Referrals Initiated None needed Whiteboard Updated in Patient Room with Yes name and ext. # of Slasher Tender Helper Review Status In Process
== END 2020-06-27 16:07 | disposition home or self-care (01) ==
LOC: ED 15:53 → AC 17:56
PROVIDERS: Admitting Provider Surgery; Emergency Provider Emergency Medicine; PCP Family Medicine; Referring Provider Emergency Medicine; Visit Provider Surgery
PROC: 0DTJ4ZZ Resection of Appendix, Percutaneous Endoscopic Approach (ICD-10-PCS; CPT 44970; principal; 2020-06-26 18:15)
DX: K35.32 Acute appendicitis with perforation, localized peritonitis, and gangrene, without abscess (principal); E66.9 Obesity, unspecified; Z20.822 Contact with and (suspected) exposure to COVID-19
CPT/HCPCS: 44970; 36415; 74177; 80053; 81003; 81025; 83690; 85025; 85610; 85730; 87635; 93005; 93010; 94660; 94760; 96361; 96372; 96374; 96375; 96376; 99220; 99284; C9803; G0378; J1100; J1170; J1650; J1885; J2250; J2405; J2543; J2704; J3010; Q9967

== ENCOUNTER → 2021-09-13 10:42 | Outpatient (CLI) | payer OTHER, SELFPAY ==
[2020-06-26 20:51] VITALS: BMI 27.1
--- NOTE | 2021-09-13 10:43 | DI.MG.S_ITS ---
BILATERAL DIGITAL SCREENING MAMMOGRAM 3D/2D WITH CAD: 09/13/2021 CLINICAL: Routine screening. Baseline exam. No prior exams were available for comparison. There are scattered fibroglandular elements in both breasts. Current study was also evaluated with a Computer Aided Detection (CAD) system. No significant masses, calcifications, or other findings are seen in either breast. IMPRESSION: NEGATIVE There is no mammographic evidence of malignancy. A 1 year screening mammogram is recommended. Based on the Tyrer Cuzick model (a risk assessment model) the patient's lifetime risk is 11.2% and her 10 year risk is 3.5%. According to the ACR, ACS, and NCCN guidelines, an annual breast MRI exam along with mammogram is recommended if the patient's lifetime risk is 20% or greater. This exam was interpreted at Station ID: [id number]. NOTE: For mammograms, a report in lay terms will be sent to the patient. Approximately 15% of breast malignancies will not be visualized mammographically. In the management of a palpable breast mass, a negative mammogram must not discourage biopsy of a clinically suspicious lesion. Electronically Signed By: Taylor fields/omkar:09/13/2021 12:42:09 letter sent: Normal Exam ACR BI-RADS Category 1: Negative [id number]
== END ==
PROVIDERS: PCP Family Medicine; Referring Provider Family Medicine; Visit Provider Family Medicine
DX: Z12.31 Encounter for screening mammogram for malignant neoplasm of breast (principal)
CPT/HCPCS: 77063; 77067

== ENCOUNTER → 2023-04-04 08:36 | Outpatient (CLI) | payer OTHER, SELFPAY ==
[2020-06-26 20:51] VITALS: BMI 27.1
--- NOTE | 2023-04-04 | DI.MG.S_ITS ---
BILATERAL DIGITAL DIAGNOSTIC MAMMOGRAM 3D/2D: 04/04/2023 CLINICAL: Intermittent pain in right breast. Comparison is made to exam dated: 09/13/2021 mammogram - [facility]. There are scattered areas of fibroglandular density in both breasts (category b / 25%-50% glandular tissue). There is a cluster of oval equal density focal asymmetries in the right breast at 10 o'clock middle depth. This is more prominent. No other significant masses, calcifications, or other findings are seen in either breast. IMPRESSION: INCOMPLETE: NEEDS ADDITIONAL IMAGING EVALUATION The cluster of oval equal density focal asymmetries in the right breast resembles clustered cysts or lymph nodes and is indeterminate. An ultrasound is recommended for further evaluation and is scheduled to immediately follow this examination. There is no abnormality seen in the right breast to correspond with the area of clinical concern and pain in the outer aspect, however, ultrasound is recommended for further evaluation and is scheduled to immediately follow this examination. Based on the Tyrer Cuzick model (a risk assessment model) the patient's lifetime risk is 11.0% and her 10 year risk is 3.8%. According to the ACR, ACS, and NCCN guidelines, an annual breast MRI exam along with mammogram is recommended if the patient's lifetime risk is 20% or greater. This exam was interpreted at Station ID: [id number]. NOTE: For mammograms, a report in lay terms will be sent to the patient. Approximately 15% of breast malignancies will not be visualized mammographically. In the management of a palpable breast mass, a negative mammogram must not discourage biopsy of a clinically suspicious lesion. Electronically Signed By: Dieter Garcia M.D. aty/:04/04/2023 15:28:55 ACR BI-RADS Category 0: Incomplete 3340F
--- NOTE | 2023-04-04 | DI.US.S_ITS ---
ULTRASOUND OF RIGHT BREAST: 04/04/2023 CLINICAL: Patient returns today to evaluate an asymmetry in the right breast. Comparison is made to exams dated: 04/04/2023 mammogram and 09/13/2021 mammogram - [facility]. Color flow and real-time ultrasound of the right breast were performed. Pineda scale images of the real-time examination were reviewed. There are two adjacent possible wider than tall oval mass with a circumscribed margin in the right breast at 10 o'clock middle depth. These oval masses are hypoechoic and isoechoic with no posterior acoustic shadowing or enhancement. This likely correlates with mammography findings. Color flow imaging demonstrates that there is no vascularity present. IMPRESSION: PROBABLY BENIGN The two possible wider than tall oval masses in the right breast are consistent with lymph nodes, lipomas, or focal fibrofatty breast tissue and is probably benign. A follow-up right mammogram and an ultrasound in 6 months is recommended to demonstrate stability. Findings and recommendations were conveyed to the patient during today's evaluation. This exam was interpreted at Station ID: [id number]. Electronically Signed By: Dieter baker/:04/04/2023 15:50:08 letter sent: Followup Recommended Ultrasound BI-RADS: 3 Probably benign
== END ==
LOC: MAMMO 08:37
PROVIDERS: PCP Family Medicine; Referring Provider Family Medicine; Visit Provider Family Medicine
DX: R92.8 Other abnormal and inconclusive findings on diagnostic imaging of breast (principal); N63.11 Unspecified lump in the right breast, upper outer quadrant; N64.4 Mastodynia; R92.323 Mammographic fibroglandular density, bilateral breasts
CPT/HCPCS: 76642; 77066; G0279

== ENCOUNTER 2024-01-26 09:42 | Observation (INO) | payer OTHER, SELFPAY ==
[2020-06-26 20:51] VITALS: BMI 27.1
[2024-01-26] VITALS (24 sets, daily range): BP systolic 109–216; BP diastolic 50–109; PULSE 68–89; RESP 10–20; TEMP 36.3–36.7; O2SAT 91–100; BMI 32.5
--- NOTE | 2024-01-26 09:52 | EKG_ITS ---
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
--- NOTE | 2024-01-26 09:52 | DI.CT.S_ITS ---
PROCEDURE: CT ANGIO HEAD AND NECK INDICATIONS: dizziness, slurred speech, diff ambulation TECHNIQUE: After the administration of intravenous contrast, 1 mm thick sections acquired from the aortic arch through the [place] of [place]. 3-dimensional tieajkv-urepxrlpa-eyijrwawed (MIP) and/or volume rendering reformats were acquired of the central intracranial vasculature and neck separately. For radiation dose reduction, the following was used: automated exposure control, adjustment of mA and/or kV according to patient size. COMPARISON: None. FINDINGS: Image quality: Diagnostic. BRAIN: No significant change since same day CT. HEAD CT ANGIOGRAPHY: Anterior circulation: Intracranial internal carotid arteries are normal in size and flow. The flow within the paired anterior cerebral arteries is normal and symmetric. The flow within the middle cerebral arteries is normal and symmetric. The anterior communicating artery is seen. No aneurysms are seen. Posterior circulation: Visualized portions of the vertebral arteries demonstrate normal caliber, and join to form a normal appearing basilar artery. Flow within the posterior cerebral arteries is normal and symmetric. No aneurysms are seen. NECK CT ANGIOGRAPHY: Carotid system: The great vessels demonstrate a conventional anatomy as they arise from the aortic arch. The origins of the common carotid arteries appear patent. The common carotid arteries demonstrate normal caliber and courses. The bifurcation regions are both widely patent. The internal carotid arteries demonstrate normal calibers and courses. Posterior circulation: The origins of the vertebral arteries both appear widely patent. The more superior extracranial portions of both vertebral arteries also demonstrate normal courses and calibers. They join to form a normal appearing basilar artery. Soft tissues: Visualized neck soft tissues demonstrate no suspicious abnormalities. Bones: No suspicious bony lesions. Visualized cervical spine appears normally aligned. IMPRESSION: No significant intracranial arterial abnormality is seen. No significant abnormality is seen within the arteries of the neck. Any quantitative measurements of stenosis were performed using NASCET criteria. Dictated by: Jose Luis Catherine M.D. on 01/26/2024 at 10:33 Approved by: Jose Luis Catherine M.D. on 01/26/2024 at 10:36
--- NOTE | 2024-01-26 09:52 | DI.CT.S_ITS ---
PROCEDURE: CT STROKE INDICATIONS: dizziness, slurred speech, diff ambulation TECHNIQUE: Noncontrast 4.5 mm thick angled axial sections acquired from the foramen magnum to the vertex, with coronal reformats. For radiation dose reduction, the following was used: automated exposure control, adjustment of mA and/or kV according to patient size. COMPARISON: None. FINDINGS: Image quality: Diagnostic. CSF spaces: Basal cisterns are patent. No extra-axial fluid collections. Ventricles are normal in size and shape. Brain: No midline shift. No intracranial masses or hemorrhage. Pined[place]-white matter interface is normal. Skull and face: Calvarium and visualized facial bones are intact, without suspicious lesions. Sinuses: Visualized sinuses and mastoids are clear. IMPRESSION: No acute intracranial pathology. Findings discussed with Dr. Henning at 10:07 a.m. On 01/26/2024. This study fulfills neurological imaging criteria for inclusion or exclusion of acute stroke therapies based on available published neurological imaging guidelines. Dictated by: Jose Luis Catherine M.D. on 01/26/2024 at 10:05 Approved by: Jose Luis Catherine M.D. on 01/26/2024 at 10:07
[2024-01-26 10:16] LABS: Add Manual Diff / Slide Review NO; Basophils Absolute Auto 0 /uL (0-100); Basophils Percent Auto 0.3 % (0-2); Eosinophils Absolute Auto 200 /uL (0-450); Eosinophils Percent Auto 2.7 % (2-4); Hematocrit 44.1 % (36-46); Hemoglobin 14.9 g/dL (12.0-16.0); Lymphocytes Absolute Auto 800 /uL (1100-4500); Mean Corpuscular HGB Conc 33.8 % (30-36); Mean Corpuscular Volume 85.8 fL (80-100); Monocytes Absolute Auto 300 /uL (0-900); Monocytes Percent Auto 3.2 % (3-14); Neutrophils Absolute Auto 7400 /uL (1500-7000); Neutrophils Percent Auto 84.8 % (50-75); Platelet Count 240 X10^3/uL (150-400); Red Blood Cell Count 5.15 X10^6/uL (4.0-5.2); Red Cell Distribution Width 12.9 % (11.6-14.8); White Blood Cell Count 8.7 X10^3/uL (4.5-11.0)
[2024-01-26 10:20] LABS: INR 1.1 (0.9-1.3)
[2024-01-26 10:22] LABS: PTT Partial Thromboplastin Tim 31 SECONDS (25.1-36.5)
[2024-01-26 10:27] LABS: Alanine Aminotransferase 39 IU/L (<35); Albumin 4.4 g/dL (3.5-5.0); Albumin Globulin Ratio 1.4 (1.0-2.8); Alkaline Phosphatase 42 U/L (38-126); Aspartate Aminotransferase 36 IU/L (14-36); Bilirubin Total 0.9 mg/dL (0.2-1.3); Blood Urea Nitrogen 15 mg/dL (7-17); Calcium 9.3 mg/dL (8.4-10.2); Carbon Dioxide 29 mmol/L (22-32); Chloride 105 mmol/L (98-107); Creatine Kinase 79 U/L (30-135); Estimated Glomerular Filt Rate > 60 mL/min (>60); Ethanol (ETOH) < 10 mg/dL; Globulin 3.1 g/dL (1.7-4.1); Glucose 112 mg/dL (70-100); HEMOLYSIS < 15 (0-50); Sodium 141 mmol/L (137-145); Total Protein 7.5 g/dL (6.3-8.2)
--- NOTE | 2024-01-26 10:35 | ED_ITS ---
HPI - Neuro Symptoms/Deficit General Chief Complaint: Dizziness Stated Complaint: Dizzy,high blood pressure slurred speech Time Seen by Provider: 01/26/24 09:52 Source: patient, RN notes reviewed, old records reviewed and other Mode of arrival: Family Vehicle Limitations: no limitations History of Present Illness HPI Narrative: 59-year-old with no reported medical issues who presents with complaint of spinning sensation with her head yesterday. States she woke up with symptoms have not resolved. She states it is worse with movement of her head or if she was moving her body. She would she had a couple episodes where she got very flushed they were pretty intense and she would nausea or vomiting. She states that is not been as intense today. She denies headache denies any vision changes or double vision. Denies any chest pain or shortness of breath. Denies any numbness tingling or weakness. She did note a little bit of speech change yesterday as well as today in the vehicle while driving with a friend. She states it is more like slurred speech. She does not feel that it is present currently. Notes that her gait feels off balance. She states she has had some diarrhea recently but denies any other urinary symptoms. States no daily prescription medications. Has had prior appendectomy, cholecystectomy and D&C. No known drug allergies. No tobacco, alcohol or recreational drugs. Dr. Rankin is her primary care physician. On Anticoagulants: No Related Data Home Medications Medication Instructions Recorded Confirmed acetaminophen 325 mg capsule 650 mg PO PRN PRN pain 01/26/24 01/26/24 (Tylenol) Allergies Allergy/AdvReac Type Severity Reaction Status Date / Time No Known Drug Allergies Allergy Verified 01/26/24 09:59 Review of Systems Review of Systems ROS Unobtainable: All systems reviewed & are unremarkable except as noted in HPI and below Hematologic/Lymphatic On Anticoagulants: No Patient History Medical History Obesity Appendicitis Surgical History History of cholecystectomy Social History household members: spouse Smoking Status: Never smoker Smoking Status: Never smoker alcohol intake frequency: holidays/special occasions only Substance Use Type: does not use Exam Narrative Exam Narrative: GEN: well nourished, well appearing female, alert and oriented x 3, patient appears to be in mild distress. HEENT: Atraumatic, pupils are equal round reactive to light, extraocular movements are intact, no nystagmus, nares are clear, TMs are clear with no fluid, there is no conjunctival pallor. Throat is clear without any exudates, erythema, tonsillar enlargement or uvular deviation, no facial droop HEART: Regular rate and rhythm without murmur, clicks, rubs. Pulses are equal in upper and lower extremities LUNGS:Lungs clear to auscultation, no wheezes, rales, crackles, chest moves symmetrically ABD:bowel sounds normal, soft, non-tender, no guarding, rebound, rigidity, no masses noted, no hepatosplenomegaly :No CVA tenderness MSCL: Non-tender, no muscle atrophy, muscles strength 5/5 upper and lower extremities, full range of motion. NEURO:CN 2-12 intact, sensation normal, finger nose finger test normal, heel rolon test normal, no dysarthria or aphasia noted Initial Vital Signs Initial Vital Signs: Vital Signs Pulse Rate 87 01/26/24 09:45 Respiratory Rate 16 01/26/24 09:45 Blood Pressure 216/99 H 01/26/24 09:45 Pulse Oximetry 97 01/26/24 09:45 Oxygen Delivery Method Room Air 01/26/24 09:45 Scores NIH Stroke Scale Level of Conciousness: Alert, keenly responsive Ask month/age: Answers both questions correctly. Open/close eyes, close hand: Performs both tasks correctly Best gaze horizontal: Normal Visual pope: No visual loss Facial palsy: Normal symetrical movement Left arm drift: No drift for full 10 sec Right arm drift: No drift for full 10 sec Left leg drift: No drift for full 5 sec Right leg drift: No drift for full 5 sec Limb ataxia: Absent Sensory on face/arms/legs: Normal, no sensory loss Best language: No aphasia, normal Dysarthria: Normal Extinction or inattention: No abnormality Total NIH Stroke scale score: 0 Course Orders Ordered: ED Orders 01/26/24 09:[address] angio head and neck Stat EKG-12 Lead Stat 01/26/24 10:00 Complete Blood Count AUTO DIFF Stat Comprehensive Metabolic Panel Stat Ethanol (ETOH) Stat PTT Partial Thromboplastin Calin Stat Prothrombin Time INR Stat Troponin & CK Cardiac Panel Stat 01/26/24 11:00 MR head/brain wo con Stat 01/26/24 13:25 Urinalysis and Microscopic Stat Urine Culture Stat Urine Drug Screen, Rapid Stat Discontinued Medications Amlodipine Besylate (Amlodipine 5 Mg Tablet) 5 mg PO NOW ONE Stop: 01/26/24 12:35 Last Admin: 01/26/24 12:46 Dose: 5 mg Documented By: DAVE Aspirin (Aspirin 81 Mg Chew Tab) 324 mg PO NOW ONE Stop: 01/26/24 11:01 Last Admin: 01/26/24 11:22 Dose: 324 mg Documented By: DAVE Meclizine HCl (Meclizine Hcl 12.5 Mg Tablet) 50 mg PO NOW ONE Stop: 01/26/24 11:01 Last Admin: 01/26/24 11:22 Dose: 50 mg Documented By: DAVE Vital Signs Vital signs: Vital Signs - 8 hr 01/26/24 09:45 01/26/24 10:19 01/26/24 10:30 Pulse Rate 87 89 78 Respiratory Rate 16 18 Blood Pressure 216/99 H Pulse Oximetry 97 91 100 Oxygen Delivery Method Room Air Room Air 01/26/24 11:00 01/26/24 11:57 01/26/24 11:58 Pulse Rate 71 75 75 Respiratory Rate 12 Blood Pressure Pulse Oximetry 97 98 98 Oxygen Delivery Method 01/26/24 11:58 01/26/24 12:00 01/26/24 12:00 Pulse Rate 77 Respiratory Rate 10 L Blood Pressure 206/100 H 188/92 H Pulse Oximetry 98 Oxygen Delivery Method Room Air 01/26/24 12:30 01/26/24 12:31 01/26/24 12:31 Pulse Rate 78 80 Respiratory Rate 16 17 Blood Pressure 214/98 H Pulse Oximetry 97 98 Oxygen Delivery Method Room Air 01/26/24 13:00 01/26/24 13:01 01/26/24 13:01 Pulse Rate 71 70 Respiratory Rate 18 18 Blood Pressure 197/95 H Pulse Oximetry 97 97 Oxygen Delivery Method 01/26/24 13:24 01/26/24 13:24 01/26/24 13:28 Pulse Rate 80 80 Respiratory Rate 16 20 Blood Pressure 204/109 H Pulse Oximetry 98 98 Oxygen Delivery Method Room Air 01/26/24 13:30 01/26/24 13:30 Pulse Rate 75 Respiratory Rate 13 Blood Pressure 183/99 H Pulse Oximetry 97 Oxygen Delivery Method MDM - Neuro Symptoms/Deficit Lab Data 01/26/24 10:00 01/26/24 10:00 Labs: Lab Results 01/26/24 01/26/24 01/26/24 Range/Units 10:00 13:25 13:25 WBC 8.7 (4.5-11.0) X10^3/uL RBC 5.15 (4.0-5.2) X10^6/uL Hgb 14.9 (12.0-16.0) g/dL Hct 44.1 (36-46) % MCV 85.8 (80-100) fL MCH 29.0 (26-34) PG MCHC 33.8 (30-36) % RDW 12.9 (11.6-14.8) % Plt Count 240 (150-400) X10^3/uL Neut % (Auto) 84.8 H (50-75) % Lymph % (Auto) 9.0 L (25-40) % [place] % (Auto) 3.2 (3-14) % Eos % (Auto) 2.7 (2-4) % Baso % (Auto) 0.3 (0-2) % Neut # (Auto) 7400 H (6840-4129) /uL Lymph # (Auto) 800 L (6814-6374) /uL [place] # (Auto) 300 (0-900) /uL Eos # (Auto) 200 (0-450) /uL Baso # (Auto) 0 (0-100) /uL PT 12.0 (9.4-12.5) SECONDS INR 1.1 (0.9-1.3) APTT 31 (25.1-36.5) SECONDS Sodium 141 (137-145) mmol/L Potassium 4.0 (3.4-5.1) mmol/L Chloride 105 (98-107) mmol/L Carbon Dioxide 29 (22-32) mmol/L BUN 15 (7-17) mg/dL Creatinine 0.60 (0.52-1.04) mg/dL Estimated GFR > 60 (>60) mL/min BUN/Creatinine Ratio 25.0 H (6-22) Glucose 112 H (70-100) mg/dL Calcium 9.3 (8.4-10.2) mg/dL Total Bilirubin 0.9 (0.2-1.3) mg/dL AST 36 (14-36) IU/L ALT 39 H (<35) IU/L Alkaline Phosphatase 42 (38-126) U/L Total Creatine Kinase 79 (30-135) U/L Troponin I < 0.012 (0.01-0.034) ng/mL Total Protein 7.5 (6.3-8.2) g/dL Albumin 4.4 (3.5-5.0) g/dL Globulin 3.1 (1.7-4.1) g/dL Albumin/Globulin Ratio 1.4 (1.0-2.8) Urine Color Yellow Urine Appearance Clear Urine pH 6.5 Normal (4.5-8.0) Ur Specific [place] <=1.005 (1.000-1.035) Urine Protein Trace H (Negative) Urine Glucose (UA) Negative (Negative) g/dL Urine Ketones Negative (NEGATIVE) Urine Occult Blood Trace-intact (Negative) Urine Nitrate Negative (Negative) Urine Bilirubin Negative (NEGATIVE) Urine Urobilinogen 0.2 (0.2) E.U./dL Ur Leukocyte Esterase Negative (NEGATIVE) Urine RBC 1-5/hpf (0-5/HPF) Urine WBC 1-5/hpf (0-5/HPF) Ur Squamous Epith Cells None seen (0-5/HPF) Urine Bacteria Many (>30) H (None) Ur Culture Indicated? Specimen cultured Vol Urine Centrifuged 10ml (spun) U Opiates 300ng/mL cut Negative (Negative) Ur Oxycodone Screen Negative (Negative) Urine Methadone Screen Negative (Negative) Ur Barbiturates Screen Negative (Negative) U Tricyclic Antidepress Negative (Negative) Ur Phencyclidine Scrn Negative (Negative) Ur Amphetamines Screen Negative (Negative) U Methamphetamines Scrn Negative (Negative) Ur MDMA Scrn (Ecstasy) Negative (Negative) U Benzodiazepines Scrn Negative (Negative) Urine Cocaine Screen Negative (Negative) U Marijuana (THC) Screen Negative (Negative) Urine Specific [place] Normal (Normal) Ethyl Alcohol < 10 ( - 10) mg/dL Ur Creatinine Normal (Normal) Point of Care Testing Glucose POC [address] scan - head: Radiologist's Impression: Close Head/Neck CTA 01/26/[address] (Signed) Florin,Jose Luis - 01/26/24 Mammogram Diagnostic (Signed) GarciaDieter - 04/04/23 Breast Ultrasound (Signed) GarciaDieter - 04/04/23 Mammogram Screening (Signed) Taylor Dia - 09/13/21 Abdomen/Pelvis CT (Signed) Jeovany Edwards - 06/26/20 Telemetry Strips 04/26/19 [place] [address] CT Scan Report Signed Patient: Dayan Hewitt MR#: [id number] : 1965 Acct:[id number] Age/Sex: 59 / F Date of Service: 01/26/24 Loc: ED Accession Number: [id number] Procedure: CT Stroke Ordering Provider: Quita Henning D.O. PROCEDURE: CT STROKE INDICATIONS: dizziness, slurred speech, diff ambulation TECHNIQUE: Noncontrast 4.5 mm thick angled axial sections acquired from the foramen magnum to the vertex, with coronal reformats. For radiation dose reduction, the following was used: automated exposure control, adjustment of mA and/or kV according to patient size. COMPARISON: None. FINDINGS: Image quality: Diagnostic. CSF spaces: Basal cisterns are patent. No extra-axial fluid collections. Ventricles are normal in size and shape. Brain: No midline shift. No intracranial masses or hemorrhage. [place]-white matter interface is normal. Skull and face: Calvarium and visualized facial bones are intact, without suspicious lesions. Sinuses: Visualized sinuses and mastoids are clear. IMPRESSION: No acute intracranial pathology. Findings discussed with Dr. Henning at 10:07 a.m. On 01/26/2024. This study fulfills neurological imaging criteria for inclusion or exclusion of acute stroke therapies based on available published neurological imaging guidelines. Dictated by: Jose Luis Catherine M.D. on 01/26/2024 at 10:05 CTA - brain/neck: Radiologist's Impression: Close Head/Neck CTA (Signed) Jose Luis Catherine - 01/26/[address] (Signed) Jose Luis Catherine - 01/26/24 Mammogram Diagnostic (Signed) Dieter Garcia - 04/04/23 Breast Ultrasound (Signed) Dieter Garcia - 04/04/23 Mammogram Screening (Signed) Taylor Dai - 09/13/21 Abdomen/Pelvis CT (Signed) Jeovany Edwards - 06/26/20 Telemetry Strips 04/26/19 [place] [address] CT Scan Report Signed Patient: Dayan Hewitt MR#: [id number] : 1965 Acct:[id number] Age/Sex: 59 / F Date of Service: 01/26/24 Loc: ED Accession Number: [id number] Procedure: CT angio head and neck Ordering Provider: Quita Henning D.O. PROCEDURE: CT ANGIO HEAD AND NECK INDICATIONS: dizziness, slurred speech, diff ambulation TECHNIQUE: After the administration of intravenous contrast, 1 mm thick sections acquired from the aortic arch through the [place] of [place]. 3-dimensional xtlplfj-kwozbychb-uwfkfmsmmw (MIP) and/or volume rendering reformats were acquired of the central intracranial vasculature and neck separately. For radiation dose reduction, the following was used: automated exposure control, adjustment of mA and/or kV according to patient size. COMPARISON: None. FINDINGS: Image quality: Diagnostic. BRAIN: No significant change since same day CT. HEAD CT ANGIOGRAPHY: Anterior circulation: Intracranial internal carotid arteries are normal in size and flow. The flow within the paired anterior cerebral arteries is normal and symmetric. The flow within the middle cerebral arteries is normal and symmetric. The anterior communicating artery is seen. No aneurysms are seen. Posterior circulation: Visualized portions of the vertebral arteries demonstrate normal caliber, and join to form a normal appearing basilar artery. Flow within the posterior cerebral arteries is normal and symmetric. No aneurysms are seen. NECK CT ANGIOGRAPHY: Carotid system: The great vessels demonstrate a conventional anatomy as they arise from the aortic arch. The origins of the common carotid arteries appear patent. The common carotid arteries demonstrate normal caliber and courses. The bifurcation regions are both widely patent. The internal carotid arteries demonstrate normal calibers and courses. Posterior circulation: The origins of the vertebral arteries both appear widely patent. The more superior extracranial portions of both vertebral arteries also demonstrate normal courses and calibers. They join to form a normal appearing basilar artery. Soft tissues: Visualized neck soft tissues demonstrate no suspicious abnormalities. Bones: No suspicious bony lesions. Visualized cervical spine appears normally aligned. IMPRESSION: No significant intracranial arterial abnormality is seen. No significant abnormality is seen within the arteries of the neck. Any quantitative measurements of stenosis were performed using NASCET criteria. Dictated by: Jose Luis Catherine M.D. on 01/26/2024 at 10:33 Approved by: Jose Luis Catherine M.D. on 01/26/2024 at 10:36 Brain MR: Radiologist's Impression: Dayan Hewitt??59??F??1965 ? Allergy/Adv: No Known Drug Allergies Close Brain MRI (Signed) Jose Luis Catherine - 01/26/24 Head/Neck CTA (Signed) Jose Luis Catherine - 01/26/[address] (Signed) Jose Luis Catherine - 01/26/24 Mammogram Diagnostic (Signed) Dieter Garcia - 04/04/23 Breast Ultrasound (Signed) Dieter Garcia - 04/04/23 Mammogram Screening (Signed) Taylor Dia - 09/13/21 Abdomen/Pelvis CT (Signed) Jeovany Edwards - 06/26/20 Telemetry Strips 04/26/19 [place] [address] Magnetic Resonance Report Signed Patient: Dayan Hewitt MR#: [id number] : 1965 Acct:[id number] Age/Sex: 59 / F Date of Service: 01/26/24 Loc: ED Accession Number: [id number] Procedure: MR head/brain wo con Ordering Provider: Quita Henning D.O. PROCEDURE: MR HEAD/BRAIN WO CON INDICATIONS: vertigo TECHNIQUE: Noncontrast axial T1 spin echo, axial T2 fast spin echo, sagittal and axial FLAIR, coronal T2 fast spin echo, axial gradient echo, axial diffusion and ADC through the brain. COMPARISON: None. FINDINGS: Image quality: Excellent. CSF Spaces: Basal cisterns are patent. No extra-axial fluid collections. Ventricles are normal in size and shape. Brain: No intracranial masses or hemorrhage. [place]/white matter interface is normal. Brainstem appears normal. Diffusion-weighted images demonstrate no acute infarct. No chronic ischemic insults. Normal intravascular flow voids are present. Skull and face: Calvarium has normal marrow signal. Orbits appear normal. Sinuses: Sinuses and mastoids are clear. IMPRESSION: No acute intracranial pathology. Dictated by: Jose Luis Catherine M.D. on 01/26/2024 at 12:19 Approved by: Jose Luis Catherine M.D. on 01/26/2024 at 12:21 ECG Data Attestation: I personally reviewed and interpreted this ECG as follows: Prior ECG tracings: available for review Interpretation: Sinus rhythm, rate of 73 OH 190 QRS 80 QTC 447, nonspecific change. Patient has prior from 06/26/2020 appears similar. MDM Narrative Medical decision making narrative: 59-year-old female with greater than 24 hours of vertigo symptoms. Patient does note that she has had little bit of start ordering dysarthria she describes it as occurring yesterday as well as a little bit today. Patient does not have any other acute neurologic changes appreciated. Her NIH is 0, she has a little unsteady with her ambulation. She was noted to be quite hypertensive which she she states it is atypical. Labs show white count of 8.7 hemoglobin of 14.9 platelets of 240, coags are negative, electrolytes are normal BUN 15 creatinine 0.6 glucose is 112, ALT is 39 but normal AST and bilirubin. Troponin is less than 0.012 ETOH is negative EKG shows sinus rhythm with nonspecific change Head CT non-con shows no acute intracranial pathology Discussed admission for stroke workup, patient may have vertigo but does describe some additional neurologic changes. She was ambivalent about obtaining MR in the department versus staying in the hospital. Spoke with Dr. Rankin we will await MRI if negative and patient is feeling improved we will plan to start Norvasc 5 mg if persistently elevated BP and follow up her tomorrow. If MR positive or patient is still quite symptomatic we will plan for admission. Brain MRI is negative for acute change. Discussed with the patient she was quite ambivalent about discharge versus home. Had just received meclizine repeat pressure was much higher. Was given Norvasc 5 mg has discussed with Dr. Rankin Patient received aspirin 324 mg as well as meclizine and norvasc 5mg po. Patient's blood pressure is slowly starting to improve over time but then increased again. She is still quite symptomatic did ambulate to the bathroom but with quite a bit of trouble. Dr. Rankin accepts for observation for vertigo and hypertension. Stroke Core Measures Exclusion Criteria TPA in CVA: Symptom Onset >3 or 4.5 Hours Discharge Plan Departure Patient Disposition: Admitted as Observation Clinical Impression: Vertigo, Hypertension Admit Date/Time: 01/26/24 13:42 Admit Provider: Jose Rankin
[2024-01-26 10:38] LABS: Troponin I < 0.012 ng/mL (0.01-0.034)
--- NOTE | 2024-01-26 11:00 | DI.MRI.S_ITS ---
PROCEDURE: MR HEAD/BRAIN WO CON INDICATIONS: vertigo TECHNIQUE: Noncontrast axial T1 spin echo, axial T2 fast spin echo, sagittal and axial FLAIR, coronal T2 fast spin echo, axial gradient echo, axial diffusion and ADC through the brain. COMPARISON: None. FINDINGS: Image quality: Excellent. CSF Spaces: Basal cisterns are patent. No extra-axial fluid collections. Ventricles are normal in size and shape. Brain: No intracranial masses or hemorrhage. [place]/white matter interface is normal. Brainstem appears normal. Diffusion-weighted images demonstrate no acute infarct. No chronic ischemic insults. Normal intravascular flow voids are present. Skull and face: Calvarium has normal marrow signal. Orbits appear normal. Sinuses: Sinuses and mastoids are clear. IMPRESSION: No acute intracranial pathology. Dictated by: Jose Luis Catherine M.D. on 01/26/2024 at 12:19 Approved by: Jose Luis Catherine M.D. on 01/26/2024 at 12:21
[2024-01-26] MEDS: MECLIZINE HCL 12.5 MG TABLET 50 MG PO (11:22)
[2024-01-26] MEDS: ASPIRIN 81 MG CHEW TAB 324 MG PO (11:22)
[2024-01-26] MEDS: AMLODIPINE 5 MG TABLET PO (12:46)
[2024-01-26 13:35] LABS: Appearance Urine UA CLEAR; Bilirubin Urine UA NEGATIVE (NEGATIVE); Color Urine UA YELLOW; Glucose Urine UA NEGATIVE (Negative); Ketones Urine UA NEGATIVE (NEGATIVE); Leukocyte Esterase Urine UA NEGATIVE (NEGATIVE); Nitrite Urine UA NEGATIVE (Negative); Occult Blood Urine UA TRACE-INTACT (Negative); Protein Urine UA TRACE (Negative); Specific Gravity Urine UA <=1.005 (1.000-1.035); Urobilinogen Urine UA 0.2 E.U./dL (0.2); pH Urine UA 6.5 (4.5-8.0)
[2024-01-26 13:37] LABS: UR Morphine/Opiate cutoff 300 Negative (Negative); Ur Creatinine Normal (Normal); Ur Specific Gravity Normal (Normal); Urine Amphetamines Negative (Negative); Urine Barbiturates Negative (Negative); Urine Benzodiazepines Negative (Negative); Urine Cocaine Negative (Negative); Urine MDMA Negative (Negative); Urine Methadone Negative (Negative); Urine Methamphetamines Negative (Negative); Urine Oxycodone Negative (Negative); Urine Phencyclidine Negative (Negative); Urine Tetrahydrocannabinol Negative (Negative); Urine Tricyclic Antidepressant Negative (Negative); Urine pH Normal (Normal)
[2024-01-26 13:41] LABS: RBC Urine 1-5/HPF (0-5/HPF); Urine Volume 10mL (spun)
[2024-01-26 13:42] LABS: Squamous Epithelial Cell Urine None Seen (0-5/HPF)
[2024-01-26 13:43] LABS: Bacteria Urine Many (>30); WBC Urine 1-5/HPF (0-5/HPF)
[2024-01-26 13:44] LABS: Culture Indicated Urine Specimen Cultured
[2024-01-26] MEDS: METOPROLOL IR 50 MG TABLET PO (16:34)
--- NOTE | 2024-01-26 17:19 | P.HP_ITS ---
History of Present Illness History of Present Illness Date Patient Seen: 01/26/24 Time Patient Seen: 17:20 Chief complaint: Dizzy,high blood pressure, slurred speech Narrative: Patient is a 59-year-old female who presents for dizziness. Patient was apparently last week had a viral syndrome which included runny nose and slight cough. No fevers no chills no other change. She seemed to get better and then yesterday started feeling dizzy. She feels it is more off balance. She has not having any issues with motor function but just off balance. Anytime she moves she feels dizzy. She became nauseated. And has not been able to keep anything down. She has had no other significant change. Yesterday she did feel like she was having some slurred speech but none today. She was unable to keep anything down and continued to feel dizzy and presented to the emergency room. She has had no headaches no fevers no chills no abdominal pain. Had diarrhea 1 week ago for 3 days but resolved. Has persistently been vomiting. But no other changes. No hematemesis. Today seem to be getting worse and she presented. Otherwise healthy. She has not been treated in the past for hypertension. Does have a brother who had a stroke in the past. But no other changes. She has had no chest pain or other changes. [facility] [place] Medical History Obesity Appendicitis Surgical History History of cholecystectomy Social History household members: spouse Smoking Status: Never smoker alcohol intake: current Meds Home Medications and Allergies Home Medications Medication Instructions Recorded Confirmed Type acetaminophen 325 mg capsule 650 mg PO PRN PRN pain 01/26/24 01/26/24 History (Tylenol) Allergies Allergy/AdvReac Type Severity Reaction Status Date / Time No Known Drug Allergies Allergy Verified 01/26/24 09:59 Review of Systems Review of Systems Narrative: All negative except what is in history and physical Exam Vital Signs (past 8 hours): - 01/26/24 09:45 01/26/24 10:19 01/26/24 10:30 Temperature Pulse Rate 87 89 78 Respiratory Rate 16 18 Blood Pressure 216/99 H Pulse Oximetry 97 91 100 Oxygen Delivery Method Room Air Room Air Oxygen Flow Rate 01/26/24 11:00 01/26/24 11:57 01/26/24 11:58 Temperature Pulse Rate 71 75 75 Respiratory Rate 12 Blood Pressure Pulse Oximetry 97 98 98 Oxygen Delivery Method Oxygen Flow Rate 01/26/24 11:58 01/26/24 12:00 01/26/24 12:00 Temperature Pulse Rate 77 Respiratory Rate 10 L Blood Pressure 206/100 H 188/92 H Pulse Oximetry 98 Oxygen Delivery Method Room Air Oxygen Flow Rate 01/26/24 12:30 01/26/24 12:31 01/26/24 12:31 Temperature Pulse Rate 78 80 Respiratory Rate 16 17 Blood Pressure 214/98 H Pulse Oximetry 97 98 Oxygen Delivery Method Room Air Oxygen Flow Rate 01/26/24 13:00 01/26/24 13:01 01/26/24 13:01 Temperature Pulse Rate 71 70 Respiratory Rate 18 18 Blood Pressure 197/95 H Pulse Oximetry 97 97 Oxygen Delivery Method Oxygen Flow Rate 01/26/24 13:24 01/26/24 13:24 01/26/24 13:28 Temperature Pulse Rate 80 80 Respiratory Rate 16 20 Blood Pressure 204/109 H Pulse Oximetry 98 98 Oxygen Delivery Method Room Air Oxygen Flow Rate 01/26/24 13:30 01/26/24 13:30 01/26/24 14:00 Temperature Pulse Rate 75 74 Respiratory Rate 13 12 Blood Pressure 183/99 H Pulse Oximetry 97 97 Oxygen Delivery Method Room Air Oxygen Flow Rate 01/26/24 14:26 01/26/24 14:26 01/26/24 14:30 Temperature Pulse Rate 77 72 Respiratory Rate 14 19 Blood Pressure 196/106 H Pulse Oximetry 97 98 Oxygen Delivery Method Room Air Oxygen Flow Rate 01/26/24 14:31 01/26/24 14:31 01/26/24 15:00 Temperature Pulse Rate 75 Respiratory Rate 17 Blood Pressure 190/87 H 165/101 H Pulse Oximetry 97 Oxygen Delivery Method Room Air Oxygen Flow Rate 01/26/24 15:00 01/26/24 15:30 Temperature 97.4 F L Pulse Rate 68 79 Respiratory Rate 13 18 Blood Pressure 210/109 H Pulse Oximetry 96 95 Oxygen Delivery Method Room Air Oxygen Flow Rate 0 Oxygen Delivery Method Room Air Oxygen Flow Rate 0 Narrative Exam Narrative: Alert interactive female fatigued in appearance in no acute distress Skins normal turgor. No rash. HEENT exam shows mucous membranes mildly dry. Neck supple without adenopathy. Lungs are clear. Heart regular rate and rhythm without murmurs clicks rubs or gallops abdomen is soft positive bowel sounds nontender extremities without cyanosis clubbing edema neurologic exam shows nystagmus persistent to the left horizontal. No vertical. Eye movement otherwise is normal. Cranial nerves 2-12 are intact motor is 5/5 reflexes 2+ and symmetric did not walk the patient. [id number] is normal Objective Labs 01/26/24 10:00 01/26/24 10:00 Labs: Laboratory Results - last 24 hr 01/26/24 01/26/24 01/26/24 10:00 13:25 13:25 WBC 8.7 RBC 5.15 Hgb 14.9 Hct 44.1 MCV 85.8 MCH 29.0 MCHC 33.8 RDW 12.9 Plt Count 240 Neut % (Auto) 84.8 H Lymph % (Auto) 9.0 L [place] % (Auto) 3.2 Eos % (Auto) 2.7 Baso % (Auto) 0.3 Neut # (Auto) 7400 H Lymph # (Auto) 800 L [place] # (Auto) 300 Eos # (Auto) 200 Baso # (Auto) 0 PT 12.0 INR 1.1 APTT 31 Sodium 141 Potassium 4.0 Chloride 105 Carbon Dioxide 29 BUN 15 Creatinine 0.60 Estimated GFR > 60 BUN/Creatinine Ratio 25.0 H Glucose 112 H Calcium 9.3 Total Bilirubin 0.9 AST 36 ALT 39 H Alkaline Phosphatase 42 Total Creatine Kinase 79 Troponin I < 0.012 Total Protein 7.5 Albumin 4.4 Globulin 3.1 Albumin/Globulin Ratio 1.4 Urine Color Yellow Urine Appearance Clear Urine pH 6.5 Normal Ur Specific [place] <=1.005 Urine Protein Trace H Urine Glucose (UA) Negative Urine Ketones Negative Urine Occult Blood Trace-intact Urine Nitrate Negative Urine Bilirubin Negative Urine Urobilinogen 0.2 Ur Leukocyte Esterase Negative Urine RBC 1-5/hpf Urine WBC 1-5/hpf Ur Squamous Epith Cells None seen Urine Bacteria Many (>30) H Ur Culture Indicated? Specimen cultured Vol Urine Centrifuged 10ml (spun) U Opiates 300ng/mL cut Negative Ur Oxycodone Screen Negative Urine Methadone Screen Negative Ur Barbiturates Screen Negative U Tricyclic Antidepress Negative Ur Phencyclidine Scrn Negative Ur Amphetamines Screen Negative U Methamphetamines Scrn Negative Ur MDMA Scrn (Ecstasy) Negative U Benzodiazepines Scrn Negative Urine Cocaine Screen Negative U Marijuana (THC) Screen Negative Urine Specific [place] Normal Ethyl Alcohol < 10 Ur Creatinine Normal Assessment & Plan Assessment & Plan narrative: Vertigo. Pretty significant. Negative MRI. No evidence of stroke. Normal neurologic exam except for nystagmus. Probable labyrinthitis. Probably viral from illness last week. Will treat with meclizine and p.o. Valium and re- evaluate in a.m.. Hypertension crisis. No previous history although patient has not had her blood pressure checked for quite awhile. Patient is given Norvasc and metoprolol at this point. Will cover with hydralazine IV if needed as needed. Re-evaluate a.m.. Hopefully we can get this under control and we can go on oral medicines. Dehydration. Mild. Given that she is improved with medication will try to orally hydrate and see how she does. Vomiting. Probably secondary to vertigo. Ondansetron as needed. DVT prophylaxis low risk should be okay with compression. Code status full. Disposition. We will see how she does over the next 12 hours. Really will be based on her blood pressure. Hope we can discharge tomorrow. Time-Based Coding :: [TOTAL MINUTES] spent with patient and on the chart (including review of chart, obtaining history, exam, reviewing outside data, placing orders, documenting exam and treatment plan, and counseling patient) on [DATE]. Quality VTE Deep Vein Thrombosis/Pulmonary Embolism Present on Admission: No
[2024-01-26] MEDS: ONDANSETRON 4 MG/2 ML INJ IV (17:35)
[2024-01-26] MEDS: ACETAMINOPHEN 325 MG TABLET 650 MG PO (17:35)
[2024-01-26] MEDS: HYDRALAZINE 20 MG/ML VIAL 10 MG IV (17:36)
[2024-01-26] MEDS: diazePAM 2 MG TABLET PO (18:17)
--- NOTE | 2024-01-26 18:38 | PC.NURSE ---
Day shift: Patient admitted from ED this afternoon. SBP 210 on admit. Called MD Rankin. PO dose of metoprolol given, decreased SBP to 180. Pt continued to be symptomatic with headache. Gave IV hydralazine which adequately lowered BP. Gave PO valium scheduled per MD orders + PO APAP for headache. Pt continues to state mild vertigo, but much improved from a few hours ago. Will continue to monitor.
[2024-01-27] VITALS: BP 132/92; PULSE 79; TEMP 36.7; O2SAT 96
[2024-01-27 04:00] VITALS: BP 120/74; PULSE 81; RESP 16; TEMP 36.4; O2SAT 91
[2024-01-27 05:16] LABS: Add Manual Diff / Slide Review NO; Basophils Absolute Auto 0 /uL (0-100); Basophils Percent Auto 0.7 % (0-2); Eosinophils Absolute Auto 400 /uL (0-450); Eosinophils Percent Auto 5.5 % (2-4); Hematocrit 41.4 % (36-46); Hemoglobin 13.7 g/dL (12.0-16.0); Lymphocytes Absolute Auto 1500 /uL (1100-4500); Mean Corpuscular HGB Conc 33.1 % (30-36); Mean Corpuscular Hemoglobin 28.5 PG (26-34); Mean Corpuscular Volume 86.2 fL (80-100); Monocytes Absolute Auto 400 /uL (0-900); Monocytes Percent Auto 5.4 % (3-14); Neutrophils Absolute Auto 4400 /uL (1500-7000); Neutrophils Percent Auto 65.4 % (50-75); Platelet Count 223 X10^3/uL (150-400); Red Blood Cell Count 4.81 X10^6/uL (4.0-5.2); White Blood Cell Count 6.7 X10^3/uL (4.5-11.0)
[2024-01-27 05:36] LABS: Alanine Aminotransferase 35 IU/L (<35); Albumin 3.9 g/dL (3.5-5.0); Albumin Globulin Ratio 1.5 (1.0-2.8); Alkaline Phosphatase 36 U/L (38-126); Aspartate Aminotransferase 33 IU/L (14-36); BUN Creatinine Ratio 25.6 (6-22); Bilirubin Total 0.9 mg/dL (0.2-1.3); Blood Urea Nitrogen 20 mg/dL (7-17); Calcium 9.2 mg/dL (8.4-10.2); Carbon Dioxide 28 mmol/L (22-32); Chloride 107 mmol/L (98-107); Estimated Glomerular Filt Rate > 60 mL/min (>60); Globulin 2.6 g/dL (1.7-4.1); Glucose 96 mg/dL (70-100); HEMOLYSIS < 15 (0-50); Potassium 4.1 mmol/L (3.4-5.1); Sodium 140 mmol/L (137-145); Total Protein 6.5 g/dL (6.3-8.2)
[2024-01-27] MEDS: MECLIZINE HCL 12.5 MG TABLET 25 MG PO (06:12)
[2024-01-27 07:00] VITALS: O2SAT 95
[2024-01-27 08:00] VITALS: BP 133/73; PULSE 88; RESP 18; TEMP 36.4; O2SAT 96
--- NOTE | 2024-01-27 08:31 | P.DS_ITS ---
History of Present Illness History of Present Illness Date Patient Seen: 01/27/24 Time Patient Seen: 08:31 Date of Onset of Symptoms: 01/24/24 Chief complaint: Dizzy,high blood pressure, slurred speech Narrative: Patient is a 59-year-old female who presents for dizziness. Patient was apparently last week had a viral syndrome which included runny nose and slight cough. No fevers no chills no other change. She seemed to get better and then yesterday started feeling dizzy. She feels it is more off balance. She has not having any issues with motor function but just off balance. Anytime she moves she feels dizzy. She became nauseated. And has not been able to keep anything down. She has had no other significant change. Yesterday she did feel like she was having some slurred speech but none today. She was unable to keep anything down and continued to feel dizzy and presented to the emergency room. She has had no headaches no fevers no chills no abdominal pain. Had diarrhea 1 week ago for 3 days but resolved. Has persistently been vomiting. But no other changes. No hematemesis. Today seem to be getting worse and she presented. Otherwise healthy. She has not been treated in the past for hypertension. Does have a brother who had a stroke in the past. But no other changes. She has had no chest pain or other changes. Discharge Providers Provider Date of admission: 01/26/24 13:42 Discharge Date: 01/27/24 Primary care physician: Jose Rankin MD Discharge provider: Jose Rankin MD Summary Hospital Course Discharge Diagnosis: Hypertensive crisis Vertigo probable labyrinthine neuritis Dehydration Vomiting Hospital Course: Hypertensive crisis. Patient is admitted after having received 1 dose of amlodipine. Blood pressures were still markedly elevated in the 200/110 and was given metoprolol. Still not improved and IV hydralazine was given with good response. Blood pressures have normalized this morning. It is unclear whether this is a long-term issue whether this is secondary to her illness but she will go home on Norvasc 5 mg side effects discussed and hydralazine once a day. She will be followed up in 7 days. She will check her blood pressure once a day at home and bring her cuff with her when she comes we discussed concerning high numbers when to call and concerning symptoms for low blood pressure she will call if any issues or problems in the short term. Vertigo. Probable neuritis. Probable viral. Patient was admitted after central MRI showed no issue. Patient could not walk. She was started on meclizine and Valium. This morning she was doing extremely well. Question was whether the Valium of the meclizine was which was improving. We had prefer not to sent home on Valium she will go home on meclizine t.i.d. side effects discussed she will follow-up with me in 1 week. Certainly increasing dizziness or other change she is to call. Dehydration. Patient was able to orally hydrate. She felt pretty well this morning and was not nauseated. We will follow. Vomiting. Secondary to labyrinthine neuritis. Seems to be much improved to day doing well. Will follow will hopefully meclizine will control her symptoms will see how things go she will call if not Exam Vital Signs (past 8 hours): - 01/27/24 04:00 Temperature 97.6 F Pulse Rate 81 Respiratory Rate 16 Blood Pressure 120/74 Pulse Oximetry 91 Oxygen Flow Rate 0 Oxygen Delivery Method Room Air Oxygen Flow Rate 0 Narrative Exam Narrative: Alert female fatigued but much less distressed Lungs are clear heart is regular rate and rhythm abdomen is benign neurologic exam shows 4 beats of nystagmus to the left normal for the right. Otherwise neurologic exam is normal Objective Labs 01/27/24 04:51 01/27/24 04:51 Labs: Laboratory Results - last 24 hr 01/26/24 01/26/24 01/26/24 10:00 13:25 13:25 WBC 8.7 RBC 5.15 Hgb 14.9 Hct 44.1 MCV 85.8 MCH 29.0 MCHC 33.8 RDW 12.9 Plt Count 240 Neut % (Auto) 84.8 H Lymph % (Auto) 9.0 L [place] % (Auto) 3.2 Eos % (Auto) 2.7 Baso % (Auto) 0.3 Neut # (Auto) 7400 H Lymph # (Auto) 800 L [place] # (Auto) 300 Eos # (Auto) 200 Baso # (Auto) 0 PT 12.0 INR 1.1 APTT 31 Sodium 141 Potassium 4.0 Chloride 105 Carbon Dioxide 29 BUN 15 Creatinine 0.60 Estimated GFR > 60 BUN/Creatinine Ratio 25.0 H Glucose 112 H Calcium 9.3 Total Bilirubin 0.9 AST 36 ALT 39 H Alkaline Phosphatase 42 Total Creatine Kinase 79 Troponin I < 0.012 Total Protein 7.5 Albumin 4.4 Globulin 3.1 Albumin/Globulin Ratio 1.4 Urine Color Yellow Urine Appearance Clear Urine pH 6.5 Normal Ur Specific [place] <=1.005 Urine Protein Trace H Urine Glucose (UA) Negative Urine Ketones Negative Urine Occult Blood Trace-intact Urine Nitrate Negative Urine Bilirubin Negative Urine Urobilinogen 0.2 Ur Leukocyte Esterase Negative Urine RBC 1-5/hpf Urine WBC 1-5/hpf Ur Squamous Epith Cells None seen Urine Bacteria Many (>30) H Ur Culture Indicated? Specimen cultured Vol Urine Centrifuged 10ml (spun) U Opiates 300ng/mL cut Negative Ur Oxycodone Screen Negative Urine Methadone Screen Negative Ur Barbiturates Screen Negative U Tricyclic Antidepress Negative Ur Phencyclidine Scrn Negative Ur Amphetamines Screen Negative U Methamphetamines Scrn Negative Ur MDMA Scrn (Ecstasy) Negative U Benzodiazepines Scrn Negative Urine Cocaine Screen Negative U Marijuana (THC) Screen Negative Urine Specific [place] Normal Ethyl Alcohol < 10 Ur Creatinine Normal 01/27/24 04:51 WBC 6.7 RBC 4.81 Hgb 13.7 Hct 41.4 MCV 86.2 MCH 28.5 MCHC 33.1 RDW 13.0 Plt Count 223 Neut % (Auto) 65.4 Lymph % (Auto) 23.0 L [place] % (Auto) 5.4 Eos % (Auto) 5.5 H Baso % (Auto) 0.7 Neut # (Auto) 4400 Lymph # (Auto) 1500 [place] # (Auto) 400 Eos # (Auto) 400 Baso # (Auto) 0 PT INR APTT Sodium 140 Potassium 4.1 Chloride 107 Carbon Dioxide 28 BUN 20 H Creatinine 0.78 Estimated GFR > 60 BUN/Creatinine Ratio 25.6 H Glucose 96 Calcium 9.2 Total Bilirubin 0.9 AST 33 ALT 35 H Alkaline Phosphatase 36 L Total Creatine Kinase Troponin I Total Protein 6.5 Albumin 3.9 Globulin 2.6 Albumin/Globulin Ratio 1.5 Urine Color Urine Appearance Urine pH Ur Specific [place] Urine Protein Urine Glucose (UA) Urine Ketones Urine Occult Blood Urine Nitrate Urine Bilirubin Urine Urobilinogen Ur Leukocyte Esterase Urine RBC Urine WBC Ur Squamous Epith Cells Urine Bacteria Ur Culture Indicated? Vol Urine Centrifuged U Opiates 300ng/mL cut Ur Oxycodone Screen Urine Methadone Screen Ur Barbiturates Screen U Tricyclic Antidepress Ur Phencyclidine Scrn Ur Amphetamines Screen U Methamphetamines Scrn Ur MDMA Scrn (Ecstasy) U Benzodiazepines Scrn Urine Cocaine Screen U Marijuana (THC) Screen Urine Specific [place] Ethyl Alcohol Ur Creatinine PFSH Medical History Obesity Appendicitis Surgical History History of cholecystectomy Social History household members: spouse Smoking Status: Never smoker alcohol intake: current Discharge Assessment & Plan Assessment and Plan Assessment: Improved Plan of Treatment: Discharge home with follow-up 1 week Discharge Plan Discharge Plan Patient Disposition: Home Discharge orders & Medications Prescriptions: New meclizine 12.5 mg Tablet 25 mg PO Q6HR PRN (Reason: Vertigo) Qty: 60 0RF amlodipine 5 mg tablet 5 mg PO DAILY Qty: 30 3RF hydralazine 25 mg tablet 25 mg PO .qd Qty: 30 3RF Continued acetaminophen [Tylenol] 325 mg capsule 650 mg PO PRN PRN (Reason: pain) Follow up/Referrals: Jose Rankin MD [Primary Care Provider] - 02/03/24 (please call for appointment late afternoon ) Discharge Health Status Multidrug resistant organism: No MDRO Diet/Activity/Treatments Diet: Diet as Tolerated Activity: as tolerated Skin/Wound/Dressing Care Report to your healthcare provider any signs of infection, such as:: chills, fever Visit Report/Discharge Packet Instructions: DI for Vertigo Stand Alone Forms: Patient Portal/API, Stroke Signs & Symptoms Discharge Data Primary Care Provider: Jose Rankin Attending Provider: Jose Rankin Admit Date/Time: 01/26/24 13:42 Quality VTE Deep Vein Thrombosis/Pulmonary Embolism Present on Admission: No
[2024-01-27] MEDS: diazePAM 2 MG TABLET PO (09:42)
--- NOTE | 2024-01-27 11:30 | CM.DANOTE ---
DCP Assessment Note- Brief Pt is a 59yo F here with hypertensive emergency/vertigo. PCP Massiel Pateler [employer] and self pay COMMUNITY AFFAIRS DIRECTOR reviewed EMR. Per Massiel notes, anticipate dc home today. Per chart, pt lives in [place] with spouse Gera. Works at [place] [employer]. Pt left prior to being seen by this COMMUNITY AFFAIRS DIRECTOR P: home with spouse today and OP F/u. No barriers to safe dc home and OP f/u. CM team will continue to follow as needed SENTHIL Oconnell Discharge Planning/Care Management CM Discharge Assessment Start: 01/27/24 11:28 Freq: Status: Active Protocol: Document 01/27/24 11:29 (Rec: 01/27/24 11:30 [id number]) Discharge Planning Assessment Assigned Statistical Engineer SENTHIL Meadows DPOA/Assigned Designee Name Gera, spouse Contact Information [phone] Advance Directives? No History Provided By Patient,Medical Record Prior Living Arrangements House Household Members spouse Type of transporation used prior to Drives own vehicle admit Independent with ADL's Yes Is patient alert and oriented? Yes Discharge Plan Home Transportation Arrangement Patient's Gera will provide transportation Referrals Initiated None needed Whiteboard Updated in Patient Room with No name and ext. # of Statistical Engineer Review Status In Process Next Review Type Continued Stay Review
== END 2024-01-27 11:05 | disposition home or self-care (01) ==
LOC: ED 09:52 → AC 13:43
PROVIDERS: Admitting Provider Family Medicine; Emergency Provider Emergency Medicine; PCP Family Medicine; Referring Provider Emergency Medicine; Visit Provider Family Medicine
DX: R42 Dizziness and giddiness (principal); R11.2 Nausea with vomiting, unspecified; R29.700 NIHSS score 0; E86.0 Dehydration; I16.9 Hypertensive crisis, unspecified
CPT/HCPCS: 36415; 70450; 70496; 70498; 70551; 80053; 80305; 80320; 81001; 82550; 82962; 84484; 85025; 85610; 85730; 87077; 87086; 87186; 93005; 96374; 96375; 99284; 99285; G0378; J0360; J2405

== ENCOUNTER → 2024-12-08 08:00 | Outpatient (CLI) | payer OTHER, SELFPAY ==
[2024-01-26 14:00] VITALS: BMI 32.5
--- NOTE | 2024-12-08 08:01 | DI.MRI.S_ITS ---
PROCEDURE: MR KNEE LT WO CON INDICATIONS: Chronic pain of left knee TECHNIQUE: Noncontrast sagittal PD fast spin echo and T2 fast spin echo with fat saturation, sagittal 3-D FLASH with fat saturation; coronal T1 spin echo and PD fast spin echo with fat saturation, and axial PD fast spin echo with fat saturation through the knee. COMPARISON: None. FINDINGS: Image quality: Excellent. Menisci: Medial extrusion of the medial meniscus is present. Linear horizontal high T2 signal intensity traverses the inner, middle, and peripheral thirds of the medial meniscal body and posterior horn, demonstrating inferior articular surface extension, indicating horizontal tearing. Lateral extrusion of the lateral meniscus is present. There is partial detachment of the lateral meniscus which demonstrates truncation, amorphous and linear horizontal high T2 signal intensity within its inner, middle, and peripheral thirds, involving the anterior horn, body, and posterior horn, demonstrating superior and inferior articular surface extension, indicating complex multifocal tearing. Cruciate ligaments: The anterior and posterior cruciate ligaments appear intact. Medial structures: The medial collateral ligament appears intact. Visualized portions of the pes anserinus tendons appear normal. There is mild T2 signal elevation within the semimembranosus at the tibial insertion site. No abnormal bursal fluid. Lateral structures: The lateral collateral ligament demonstrates moderate T2 signal elevation at the femoral insertion site. The long and short heads of the biceps femoris tendon appear intact. The popliteus tendon appears normal. Iliotibial band appears normal. Anterior structures: The quadriceps and patellar tendons appear intact. Patellar alignment is normal. No femoral trochlear dysplasia or ventral trochlear prominence. No edema in the infrapatellar fat pad. Bones and cartilage: No bone marrow contusions nor acute fractures. There is mild chronic appearing irregularity of the posterior weight-bearing aspect of the medial tibial plateau with moderate ill-defined surrounding STIR signal elevation, suggestive of healed fracture deformity with secondary degenerative marrow edema. There is chronic appearing depression of the lateral tibial plateau, spanning 35 mm anteroposterior, and depressed by roughly 4 mm. Moderate tricompartmental periarticular osteophyte formation. Moderate articular cartilage loss diffusely overlies the weight-bearing aspects of the medial femoral condyle and medial tibial plateau. Severe articular cartilage loss overlies the weight-bearing aspects of the lateral femoral condyle and lateral tibial plateau. Articular cartilage fibrillation overlies the lateral patellar facet. Moderate articular cartilage loss overlies the central femoral trochlea and lateral facet patellar facet. Joint space: There is a moderate knee joint effusion, a moderate Barrientos's cyst, as well as multiple intra-articular loose bodies, largest of which is in the anterior central aspect of the knee joint measuring 23 mm. Small ganglion cyst along the popliteus is present. Normal appearing synovial plicae are incidentally noted. IMPRESSION: 1. Complex tearing of the medial and lateral menisci. 2. Lateral collateral ligament tear. 3. Tricompartmental osteoarthritis with associated articular cartilage loss. 4. Chronic fracture deformity of the medial and lateral tibial plateaus. 5. Knee joint effusion with intra-articular loose bodies and Barrientos's cyst. 6. Insertional tendinitis of the semimembranosus. Dictated by: Jimmy Cruz M.D. on 12/08/2024 at 12:29 Approved by: Jimmy Cruz M.D. on 12/08/2024 at 12:34
== END ==
PROVIDERS: PCP Family Medicine; Referring Provider Family Medicine; Visit Provider Family Medicine
DX: S83.232A Complex tear of medial meniscus, current injury, left knee, initial encounter (principal); S83.272A Complex tear of lateral meniscus, current injury, left knee, initial encounter; S83.422A Sprain of lateral collateral ligament of left knee, initial encounter; M17.12 Unilateral primary osteoarthritis, left knee; M25.462 Effusion, left knee; M71.22 Synovial cyst of popliteal space [Baker], left knee; S82.142S Displaced bicondylar fracture of left tibia, sequela; M25.362 Other instability, left knee; M25.562 Pain in left knee; G89.29 Other chronic pain
CPT/HCPCS: 73721

== ENCOUNTER → 2024-12-09 16:05 | Outpatient (CLI) | payer OTHER, SELFPAY ==
[2024-01-26 14:00] VITALS: BMI 32.5
--- NOTE | 2024-12-09 16:07 | DI.RAD.S_ITS ---
PROCEDURE: XR KNEE 2V WB LEFT INDICATIONS: L KNEE PAIN TECHNIQUE: For views of the knee were acquired. COMPARISON: None. FINDINGS: Bones: Tricompartmental osteoarthritis with severe joint space narrowing in the lateral tibiofemoral compartment, and tricompartmental osteophytosis. No suspicious bony lesions. No displaced fracture or traumatic malalignment. The contralateral right knee also demonstrates severe lateral tibiofemoral compartment joint space narrowing and osteophytosis. Soft tissues: No joint effusion. No suspicious soft tissue calcifications. IMPRESSION: 1. No acute bony abnormality or significant effusion. 2. 3. Tricompartmental osteoarthritis, with severe lateral tibiofemoral compartment joint space narrowing. Dictated by: Elizabeth Dahl M.D. on 12/11/2024 at 19:27 Approved by: Elizabeth Dahl M.D. on 12/11/2024 at 19:31
== END ==
PROVIDERS: PCP Family Medicine; Referring Provider Orthopaedic Surgery Adult Reconstructive Orthopaedic Surgery; Visit Provider Orthopaedic Surgery Adult Reconstructive Orthopaedic Surgery
DX: M17.12 Unilateral primary osteoarthritis, left knee (principal); M25.562 Pain in left knee
CPT/HCPCS: 73564